=== PATIENT | female | born 1965 | race Caucasian/White ===

== ENCOUNTER → 2017-04-12 | Outpatient (CLI) | payer BC | END | disposition home or self-care (01) | LOC: C.PAPS 09:53 | PROVIDERS: ATTEND Obstetrics & Gynecology | DX: Z01.419 Encounter for gynecological examination (general) (routine) without abnormal findings (principal) ==

== ENCOUNTER 2021-06-08 04:42 | Inpatient (IN) ==
[2021-06-08] MEDS ORDERED: GI COCKTAIL ED USE PO ONE (05:05)
[2021-06-08] MEDS ORDERED: KETOROLAC TROMETHAMINE 15 MG/ML VIAL IV STA (05:05)
[2021-06-08] MEDS ORDERED: SODIUM CHLORIDE 0.9% 1000ML 1,000 ML IV ONE (05:05)
[2021-06-08] MEDS ORDERED: FAMOTIDINE 20MG IV PUSH 20 MG/5 ML SYR IV STA (05:05)
--- NOTE | 2021-06-08 05:57 | Emergency Department Note ---
History of Present Illness General Chief complaint: Flank Pain Stated complaint: SEVERE STOMACH AND BACK PAIN Time Seen by Provider: 06/08/21 04:57 History of Present Illness Maximum Pain Intensity: 8 This 55-year-old female patient presents to the emergency department today for evaluation of back pain, epigastric pain, and bloating. Symptoms have been ongoing for about 2 months. The back pain has been evaluated by her PCP and [employer] and she has had multiple pelvic ultrasounds completed which have been negative. She states initially, the back pain started with some pelvic cramping and "like I have my. But I been in menopause for years". Patient denies any vaginal bleeding or discharge. No dysuria, urinary frequency, urinary hesitancy. No fever. States over the past week or 2, the back pain has been worsening, primarily in the left lower back, but does move to the right sometimes. She states last night after eating an orange, she developed pain in her epigastrium radiating up into her chest. She states she is taking OTC Nexium without relief of her symptoms. She is scheduled to see gastroenterology in 2 days, but felt that her pain was too severe and she would like "to get some answers and relief". Patient took 1 Advil at the onset of her pain last night. There has been no vomiting. There is no diarrhea or constipation. No dysuria, urinary frequency, urinary hesitancy. She rates her pain 8/10 and describes it as burning and sharp. Home Medications Medication Instructions Recorded Confirmed Type buspirone 10 mg tablet 10 mg PO BID 05/29/19 04/07/21 History calcium carbonate [Calcium 500] PO 06/03/20 04/07/21 History cholecalciferol (vitamin D3) PO 06/03/20 04/07/21 History mometasone [Nasonex] INTRANASAL 06/03/20 04/07/21 History omega-3 fatty acids [Fish Oil PO 06/03/20 04/07/21 History Concentrate] vitamin E acetate PO 06/03/20 04/07/21 History zinc acetate PO 06/03/20 04/07/21 History estradiol 1 g VAGINAL .COMPLEX #42.5 g 04/13/21 Rx Allergies Allergy/AdvReac Type Severity Reaction Status Date / Time house dust Allergy Verified 04/07/21 14:20 mold Allergy Verified 04/07/21 14:20 No Known Drug Allergies Allergy Verified 04/07/21 14:20 Past Med/Surg History Medical History Asthma Genital warts PMB (postmenopausal bleeding) Surgical History H/O dilation and curettage History of cryosurgery History of dental surgery Family History Father Dyslipidemia Mother Uterine leiomyoma Other Depression Hypertension Social History Smoking Status: Never smoker Hx Alcohol Use: Yes Preferred Language: Ukrainian marital status: Feels Safe at Home: Yes Review of Systems A total of 10 systems reviewed and were otherwise negative Physical Exam Vital Signs Vital Signs - 24 hr 06/08/21 04:47 06/08/21 06:24 Temperature 36.5 C Temperature Source Temporal Artery Scan Pulse Rate 79 Respiratory Rate 18 Blood Pressure 195/117 H Blood Pressure Mean 143 Pulse Oximetry 98 100 Oxygen Delivery Method Room Air Room Air Sepsis New/Unexplained Change in Mental Status N/A Sepsis Action Taken by Nursing No Action Required VITALS: Vitals are noted on the nurse's note and reviewed by myself. Patient is hypertensive. GENERAL: This is a 55-year-old white female, in no acute distress, nondiaphoretic, well-developed well-nourished. SKIN: The skin was without rashes, erythema, edema, or bruising. There is no tenting of the skin. Capillary refill less than 2 seconds. HEAD: Normocephalic atraumatic. EYES: Conjunctivae without injection, sclerae without icterus. NECK: Supple without nuchal rigidity. No lymphadenopathy. No JVD. HEART: Regular rate and rhythm without murmurs gallops or rubs. LUNGS: Clear to auscultation bilaterally without wheezes, rales or rhonchi. No retractions or accessory muscle use. ABDOMEN: Positive bowel sounds x 4. Some bloating particularly in the upper abdomen. No CVA tenderness bilaterally. Abdomen otherwise generally tender. No obvious without masses or organomegaly. Joe sign negative. No guarding or rebound tenderness. MUSCULOSKELETAL: No muscle atrophy, erythema, or edema noted. Full range of motion without joint tenderness in all extremities. No tenderness to palpation. Normal gait. Strength 5/5 throughout. NEURO: Patient was alert and oriented to person place and time. No focal neurological deficits. Course Course The patient was seen and evaluated as above. An order was placed for continuous cardiac monitoring. The monitor shows a normal sinus rhythm at a rate of 79 bpm. IV access obtained, labs drawn. Labs reviewed by myself. The patient was signed out to MIGUELITO Davila pending CT imaging. Please see her dictation regarding final disposition and plan. Administered Medications Discontinued Medications Al Hydrox/Mg Hydrox/Simethicone (Gi Cocktail Ed Use) 1 dose PO ONE ONE Stop: 06/08/21 05:06 Last Admin: 06/08/21 06:11 Dose: 1 dose Documented by: [id number] Famotidine (Pepcid 20mg Iv Push) 20 mg in 5 mls @ 2.5 mls/min IV NOW STA Stop: 06/08/21 05:06 Last Admin: 06/08/21 06:12 Dose: 2.5 mls/min Documented by: [id number] Sodium Chloride (Nss 1000ml) 1,000 mls @ 999 mls/hr IV .Q1H1M ONE Stop: 06/08/21 06:05 Last Admin: 06/08/21 06:12 Dose: 999 mls/hr Documented by: [id number] Ketorolac Tromethamine (Ketorolac Tromethamine 15 Mg/Ml Vial) 15 mg IV NOW STA Stop: 06/08/21 05:06 Last Admin: 06/08/21 06:11 Dose: 15 mg Documented by: [id number] Medical Decision Making Differential Diagnosis Etiologies such as appendicitis, diverticulitis, obstruction, inflammatory bowel disease, renal colic, PUD, biliary pathology, pancreatitis, mesenteric ischemia, aortic pathology, infections, genitourinary, UTI, perforated viscus, as well as others were entertained. Medical Records Attestation: I reviewed the patient's medical records. Home Medications Current Medication List: was personally reviewed by me Laboratory Data Attestation: I reviewed the patient's lab results. No leukocytosis, anemia, thrombocytopenia. Troponin negative. Urinalysis appears contaminated. No nitrites or bacteria to clearly indicate infection. CMP pending at the time of signout. Result diagrams: 06/08/21 05:53 06/08/21 05:53 Lab Results 06/08/21 06/08/21 06/08/21 Range/Units 05:53 05:53 05:53 WBC 8.81 (4.8-10.8) K/uL RBC 4.81 (4.2-5.4) M/uL Hgb 14.8 (12.0-16.0) g/dL Hct 42.6 (37-47) % MCV 88.6 (80-100) fL MCH 30.8 (25-34) pg MCHC 34.7 (32-36) g/dL RDW Std Deviation 40.5 (36.4-46.3) fL RDW Coeff of Aguilar 12.5 (11.5-14.5) % Plt Count 223 (130-400) K/uL MPV 9.4 (7.4-10.4) fL Immature Gran % (Auto) 0.2 % Neut % (Auto) 68.7 % Lymph % (Auto) 20.4 % [place] % (Auto) 9.2 % Eos % (Auto) 1.2 % Baso % (Auto) 0.3 % Neut # (Auto) 6.04 (1.4-6.5) K/uL Lymph # (Auto) 1.80 (1.2-3.4) K/uL Leslie # (Auto) 0.81 H (0.11-0.59) K/uL Eos # (Auto) 0.11 (0-0.5) K/uL Baso # (Auto) 0.03 (0-0.2) K/uL Immature Gran # (Auto) 0.02 (0.00-0.02) K/uL Troponin I < 0.03 (0-0.04) ng/ml Urine Color Dark Yellow Urine Appearance Clear (Clear) Urine pH 7.0 (4.5-7.5) Ur Specific [place] 1.021 (1.000-1.030) Urine Protein Trace H (Negative) Urine Glucose (UA) Negative (Negative) Urine Ketones Trace H (Negative) Urine Blood 1+ H (Negative) Urine Nitrite Negative (Negative) Urine Bilirubin 1+ H (Negative) Urine Urobilinogen Negative (Negative) Ur Leukocyte Esterase Trace H (Negative) Urine WBC (Auto) 1-5 (0-5) /hpf Urine RBC (Auto) 10-30 H (0-4) /hpf U Hyaline Cast (Auto) 1-5 (0-5) /lpf U Epithel Cells (Auto) >30 H (0-5) /lpf Urine Bacteria (Auto) Negative (Negative) Blood Pressure Blood Pressure Findings: Elevated blood pressure Blood Pressure Disposition: Referred to patients primary care provider MDM Narrative This 55-year-old female patient presents to the emergency department today for evaluation of epigastric pain and bloating and low back pain. The low back pain has been ongoing for about 2 months. The epigastric pain began earlier this week and worsened overnight. The patient presented to the ED for evaluation. She is scheduled to see GI this week. The above work-up was ordered. CBC, troponin, lipase, UA unrevealing. CMP was pending at the time of shift change/signout. CT imaging is pending at the time of shift change/signout as well. Please see Yesica Stauffer dictation regarding final disposition and plan for this patient. The chart was completed utilizing [employer] Speech voice recognition software. Grammatical errors, random word insertions, pronoun errors, and incomplete sentences are an occasional consequence of this system due to software limitations, ambient noise, and hardware issues. Any formal questions or concerns about the content, text, or information contained within the body of this dictation should be directly addressed to the provider for clarification. Impression & Plan Abdominal pain, Back pain Discharge Plan Visit Data Chief Complaint: Flank Pain Stated Complaint: SEVERE STOMACH AND BACK PAIN ED Provider: Leydi Berrios ED Midlevel Provider: Yesica Stauffer Discharge Problem: Abdominal pain, Back pain Patient Disposition: Still a Patient Forms Stand Alone Forms: [employer] Prescriptions Prescriptions: No Action estradiol 0.01 % (0.1 mg/gram) cream 1 g vaginal .COMPLEX Qty: 42.5 RF: 3 calcium carbonate PO RF: 0 cholecalciferol (vitamin D3) PO RF: 0 zinc acetate PO RF: 0 vitamin E acetate PO RF: 0 omega-3 fatty acids PO RF: 0 mometasone intranasal RF: 0 buspirone 10 mg tablet 10 mg PO BID RF: 0 Referrals Referrals: Varsha Tubbs DO [Primary Care Provider] - Discharge Problem: Abdominal pain Qualifiers: Abdominal location: epigastric Qualified Code(s): R10.13 - Epigastric pain Back pain Qualifiers: Back pain location: low back pain Chronicity: chronic Back pain laterality: bilateral Sciatica presence: without sciatica Qualified Code(s): M54.50 - Low back pain, unspecified
[2021-06-08 06:07] LABS: Basophils # (auto) 0.03 K/uL (0-0.2); Basophils % (auto) 0.3 %; Eosinophils # (auto) 0.11 K/uL (0-0.5); Eosinophils % (auto) 1.2 %; Hematocrit (blood only) 42.6 % (37-47); Hemoglobin 14.8 g/dL (12.0-16.0); Immature Granulocytes # (auto) 0.02 K/uL (0.00-0.02); Immature Granulocytes % (auto) 0.2 %; Lymphocytes % (auto) 20.4 %; Mean Corpuscular Hemoglobin 30.8 pg (25-34); Mean Corpuscular Hgb Conc 34.7 g/dL (32-36); Mean Corpuscular Volume 88.6 fL (80-100); Mean Platelet Volume 9.4 fL (7.4-10.4); Monocytes # (auto) 0.81 K/uL (0.11-0.59); Monocytes % (auto) 9.2 %; Neutrophils # (auto) 6.04 K/uL (1.4-6.5); Neutrophils % (auto) 68.7 %; Platelet Count 223 K/uL (130-400); RDW Coefficient of Variation 12.5 % (11.5-14.5); RDW Standard Deviation 40.5 fL (36.4-46.3); Red Blood Count 4.81 M/uL (4.2-5.4); White Blood Count 8.81 K/uL (4.8-10.8)
[2021-06-08 06:26] LABS: Appearance Urine Clear (Clear); Bacteria Urine Automated Negative (Negative); Blood Urine 1+ (Negative); Color Urine Dark Yellow; Epithelial Cell Urine Auto >30 /lpf (0-5); Glucose Urine UA Negative (Negative); Ketones Urine Trace (Negative); Leukocyte Esterase Urine Trace (Negative); Nitrite Urine Negative (Negative); Protein Urine Trace (Negative); Specific Gravity Urine 1.021 (1.000-1.030); Urobilinogen Urine Negative (Negative)
[2021-06-08 06:32] LABS: Troponin I < 0.03 ng/ml (0-0.04)
[2021-06-08 06:33] LABS: Bilirubin Urine 1+ (Negative)
--- NOTE | 2021-06-08 07:23 | Emergency Department Note ---
Impression & Plan Abdominal pain, Back pain ED Provider Note I received sign out from Summer Lindo PA-C at change of shift. Pt presented with upper abdominal pain and lower back pain for a few months. Labs and CT pending. Patient does have a follow-up appointment with GI in 2 days. Disposition pending results. Patient's labs were notable for elevated T bili and AST/ALT. Normal lipase. She did have a normal WBC count. CT of the abdomen/pelvis noted distention of the gallbladder with thickening of the wall and possible trace pericholecystic fluid consistent with acute cholecystitis. I spoke on the phone with Dr. Pabon, general surgery, who will admit the patient, and he would like for her to have an ERCP, and he will most likely take her to surgery for cholecystectomy after this. I evaluated the patient, she was updated regarding her labs and CT findings and the plan for admission and most likely surgery. All questions were answered and the patient was agreeable to this plan. She was given additional medication with morphine and Zofran for pain and nausea. A COVID test was ordered. The patient was stable at the time of admission. The chart was completed utilizing [employer] Speech voice recognition software. Grammatical errors, random word insertions, pronoun errors, and incomplete sentences are an occasional consequence of this system due to software limitations, ambient noise, and hardware issues. Any formal questions or concerns about the content, text, or information contained within the body of this dictation should be directly addressed to the nurse practitioner for clarification. Past Med/Surg History Medical History Asthma Genital warts PMB (postmenopausal bleeding) Surgical History H/O dilation and curettage History of cryosurgery of cervix History of dental surgery Family History Father Dyslipidemia Mother Uterine leiomyoma Other Depression Hypertension Social History Smoking Status: Never smoker Hx Alcohol Use: Yes Preferred Language: Citizen Of [place] marital status: Feels Safe at Home: Yes Allergies Allergies Allergy/AdvReac Type Severity Reaction Status Date / Time house dust Allergy Verified 06/08/21 10:06 mold Allergy Verified 06/08/21 10:06 No Known Drug Allergies Allergy Verified 04/07/21 14:20 Home Meds Home Medications Medication Instructions Recorded Confirmed buspirone 10 mg tablet 10 mg PO QAM 05/29/19 06/08/21 esomeprazole magnesium 20 mg 20 mg PO QAM 06/08/21 06/08/21 capsule,delayed release Previous Rx's Medication Instructions Recorded estradiol 1 g VAGINAL .COMPLEX #42.5 g 04/13/21 Results & Data (ED) Vital Signs Vital Signs - 24 hr 06/08/21 04:47 06/08/21 06:24 06/08/21 09:59 Temperature 36.5 C Temperature Source Temporal Artery Scan Pulse Rate 79 Pulse Rate [Apical] 80 Pulse Rate [Left Finger] Pulse Rhythm [Left Finger] Pulse Strength [Left Finger] Respiratory Rate 18 18 Respiratory Effort / Characteristics Respiratory Depth Respiratory Pattern Blood Pressure 195/117 H Blood Pressure [Left Arm] 184/118 H Blood Pressure Mean 143 Blood Pressure Mean [Left Arm] 140 Blood Pressure Position [Left Arm] Pulse Oximetry 98 100 96 Oxygen Delivery Method Room Air Room Air Room Air Sepsis New/Unexplained Change in Mental Status N/A Sepsis Action Taken by Nursing No Action Required 06/08/21 10:50 06/08/21 11:09 Temperature 37 C 36.7 C Temperature Source Oral Pulse Rate 88 Pulse Rate [Apical] Pulse Rate [Left Finger] 68 Pulse Rhythm [Left Finger] Regular Pulse Strength [Left Finger] Normal Respiratory Rate 18 Respiratory Effort / Characteristics Non-Labored Spontaneous Respiratory Depth Normal Respiratory Pattern Regular Blood Pressure 154/82 H Blood Pressure [Left Arm] 169/101 H Blood Pressure Mean Blood Pressure Mean [Left Arm] 123 Blood Pressure Position [Left Arm] Semi-fowlers Pulse Oximetry 98 97 Oxygen Delivery Method Room Air Room Air Sepsis New/Unexplained Change in Mental Status Sepsis Action Taken by Nursing Laboratory Data Result diagrams: 06/08/21 05:53 06/08/21 05:53 Lab Results 06/08/21 06/08/21 06/08/21 Range/Units 05:53 05:53 05:53 WBC 8.81 (4.8-10.8) K/uL RBC 4.81 (4.2-5.4) M/uL Hgb 14.8 (12.0-16.0) g/dL Hct 42.6 (37-47) % MCV 88.6 (80-100) fL MCH 30.8 (25-34) pg MCHC 34.7 (32-36) g/dL RDW Std Deviation 40.5 (36.4-46.3) fL RDW Coeff of Aguilar 12.5 (11.5-14.5) % Plt Count 223 (130-400) K/uL MPV 9.4 (7.4-10.4) fL Immature Gran % (Auto) 0.2 % Neut % (Auto) 68.7 % Lymph % (Auto) 20.4 % [place] % (Auto) 9.2 % Eos % (Auto) 1.2 % Baso % (Auto) 0.3 % Neut # (Auto) 6.04 (1.4-6.5) K/uL Lymph # (Auto) 1.80 (1.2-3.4) K/uL [place] # (Auto) 0.81 H (0.11-0.59) K/uL Eos # (Auto) 0.11 (0-0.5) K/uL Baso # (Auto) 0.03 (0-0.2) K/uL Immature Gran # (Auto) 0.02 (0.00-0.02) K/uL Sodium 139 (136-145) mmol/L Potassium 4.0 (3.5-5.1) mmol/L Chloride 106 (98-107) mmol/L Carbon Dioxide 25 (21-32) mmol/L Anion Gap 8 (3-11) BUN 16 (6-23) mg/dl Creatinine 0.79 (0.6-1.2) mg/dl Est Cr Clr Drug Dosing 68.1 ml/min Est GFR ( Amer) 99.1 ml/min Est GFR (Non-Af Amer) 85.5 ml/min BUN/Creatinine Ratio 20.3 H (10-20) Glucose 104 H (70-99(Fasting)) mg/dl Calcium 8.7 (8.5-10.1) mg/dl Total Bilirubin 2.7 H (0.2-1.0) mg/dl AST 478 H (13-39) U/L ALT 370 H (7-52) U/L Alkaline Phosphatase 96 (34-104) U/L Troponin I < 0.03 (0-0.04) ng/ml Total Protein 7.1 (6.0-8.3) gm/dl Albumin 4.2 (3.4-5.0) gm/dl Globulin 2.9 (2.5-4.0) gm/dl Albumin/Globulin Ratio 1.4 (0.9-2) Lipase 31 (11-82) U/L Urine Color Dark Yellow Urine Appearance Clear (Clear) Urine pH 7.0 (4.5-7.5) Ur Specific [place] 1.021 (1.000-1.030) Urine Protein Trace H (Negative) Urine Glucose (UA) Negative (Negative) Urine Ketones Trace H (Negative) Urine Blood 1+ H (Negative) Urine Nitrite Negative (Negative) Urine Bilirubin 1+ H (Negative) Urine Urobilinogen Negative (Negative) Ur Leukocyte Esterase Trace H (Negative) Urine WBC (Auto) 1-5 (0-5) /hpf Urine RBC (Auto) 10-30 H (0-4) /hpf U Hyaline Cast (Auto) 1-5 (0-5) /lpf U Epithel Cells (Auto) >30 H (0-5) /lpf Urine Bacteria (Auto) Negative (Negative) POC Ur Test (NEG) SARS-CoV-2, RNA, NAAT (NEGATIVE) 06/08/21 06/08/21 Range/Units 09:50 Unknown WBC (4.8-10.8) K/uL RBC (4.2-5.4) M/uL Hgb (12.0-16.0) g/dL Hct (37-47) % MCV (80-100) fL MCH (25-34) pg MCHC (32-36) g/dL RDW Std Deviation (36.4-46.3) fL RDW Coeff of Aguilar (11.5-14.5) % Plt Count (130-400) K/uL MPV (7.4-10.4) fL Immature Gran % (Auto) % Neut % (Auto) % Lymph % (Auto) % [place] % (Auto) % Eos % (Auto) % Baso % (Auto) % Neut # (Auto) (1.4-6.5) K/uL Lymph # (Auto) (1.2-3.4) K/uL [facility] # (Auto) (0.11-0.59) K/uL Eos # (Auto) (0-0.5) K/uL Baso # (Auto) (0-0.2) K/uL Immature Gran # (Auto) (0.00-0.02) K/uL Sodium (136-145) mmol/L Potassium (3.5-5.1) mmol/L Chloride (98-107) mmol/L Carbon Dioxide (21-32) mmol/L Anion Gap (3-11) BUN (6-23) mg/dl Creatinine (0.6-1.2) mg/dl Est Cr Clr Drug Dosing ml/min Est GFR ( Amer) ml/min Est GFR (Non-Af Amer) ml/min BUN/Creatinine Ratio (10-20) Glucose (70-99(Fasting)) mg/dl Calcium (8.5-10.1) mg/dl Total Bilirubin (0.2-1.0) mg/dl AST (13-39) U/L ALT (7-52) U/L Alkaline Phosphatase (34-104) U/L Troponin I (0-0.04) ng/ml Total Protein (6.0-8.3) gm/dl Albumin (3.4-5.0) gm/dl Globulin (2.5-4.0) gm/dl Albumin/Globulin Ratio (0.9-2) Lipase (11-82) U/L Urine Color Urine Appearance (Clear) Urine pH (4.5-7.5) Ur Specific [place] (1.000-1.030) Urine Protein (Negative) Urine Glucose (UA) (Negative) Urine Ketones (Negative) Urine Blood (Negative) Urine Nitrite (Negative) Urine Bilirubin (Negative) Urine Urobilinogen (Negative) Ur Leukocyte Esterase (Negative) Urine WBC (Auto) (0-5) /hpf Urine RBC (Auto) (0-4) /hpf U Hyaline Cast (Auto) (0-5) /lpf U Epithel Cells (Auto) (0-5) /lpf Urine Bacteria (Auto) (Negative) POC Ur Test NEG (NEG) SARS-CoV-2, RNA, NAAT NEGATIVE (NEGATIVE) Administered Medications Discontinued Medications Al Hydrox/Mg Hydrox/Simethicone (Gi Cocktail Ed Use) 1 dose PO ONE ONE Stop: 06/08/21 05:06 Last Admin: 06/08/21 06:11 Dose: 1 dose Documented by: [id number] Famotidine (Pepcid 20mg Iv Push) 20 mg in 5 mls @ 2.5 mls/min IV NOW STA Stop: 06/08/21 05:06 Last Admin: 06/08/21 06:12 Dose: 2.5 mls/min Documented by: [id number] Sodium Chloride (Nss 1000ml) 1,000 mls @ 999 mls/hr IV .Q1H1M ONE Stop: 06/08/21 06:05 Last Admin: 06/08/21 06:12 Dose: 999 mls/hr Documented by: [id number] Ioversol (Optiray 320 100ml) 94 ml IV ONCE ONE Stop: 06/08/21 08:29 Last Admin: 06/08/21 08:28 Dose: 94 ml Documented by: [id number] Ketorolac Tromethamine (Ketorolac Tromethamine 15 Mg/Ml Vial) 15 mg IV NOW STA Stop: 06/08/21 05:06 Last Admin: 06/08/21 06:11 Dose: 15 mg Documented by: [id number] Morphine Sulfate (Morphine Sulfate 4 Mg/Ml 1 Ml Carp\Vial) 4 mg IV NOW STA Stop: 06/08/21 09:39 Last Admin: 06/08/21 09:53 Dose: 4 mg Documented by: [id number] Ondansetron HCl (Ondansetron Inj 2 Mg/Ml 2 Ml Vial) 4 mg IV NOW STA Stop: 06/08/21 09:39 Last Admin: 06/08/21 09:53 Dose: 4 mg Documented by: [id number] Imaging Data Radiologist's Impression: Abdomen/Pelvis CT 06/08/21 05:06 CT abd pelvis IV con only CLINICAL HISTORY: Left low back pain, epigastric pain TECHNIQUE: Helical axial images of the abdomen and pelvis were obtained and displayed. Automated dose lowering techniques and/or adjustment according to p atient size were utilized for this exam. This exam was performed with intravenous contrast. COMPARISON: None available at the time of this dictation. FINDINGS: Lower chest: Mild cardiomegaly is seen. There is atelectasis in the bilateral lung bases. Liver: Periportal edema is seen. Gallbladder and biliary tree: Gallbladder is markedly distended and the wall measures approximately 3 mm. No intra- or extrahepatic biliary ductal dilation. Pancreas: Unremarkable, no focal lesions. Spleen: Unremarkable. Adrenals: Unremarkable. Kidneys and ureters: Unremarkable. Bladder: Unremarkable. Reproductive organs: Unremarkable. Bowel: Unremarkable. Lymph nodes Retroperitoneal: Unremarkable. Mesenteric: Unremarkable. Pelvic: Unremarkable. Peritoneum: Normal. Vessels: Unremarkable. Abdominal wall: A fat-containing umbilical hernia is seen. Bones: Unremarkable. IMPRESSION: There is distention of the gallbladder with thickening of the wall with possible trace pericholecystic fluid. Findings are suggestive of acute cholecystitis in this patient with epigastric pain. If further evaluation is desired, right upper quadrant ultrasound or HIDA scan can be performed. ACT 112: Negative or not required by law. Electronically signed by: Perfecto Melgar M.D. 06/08/2021 8:52 AM Discharge Plan Visit Data Chief Complaint: Flank Pain Stated Complaint: SEVERE STOMACH AND BACK PAIN ED Provider: Leydi Berrios ED Midlevel Provider: Yesica Stauffer Discharge Problem: Abdominal pain, Back pain Patient Disposition: Still a Patient Discharge Instructions Interventions: ED Discharge Assessment Last Done: 06/08/21 10:50 Discharge Problem: Abdominal pain Qualifiers: Abdominal location: epigastric Qualified Code(s): R10.13 - Epigastric pain Back pain Qualifiers: Back pain location: low back pain Chronicity: chronic Back pain laterality: bilateral Sciatica presence: without sciatica Qualified Code(s): M54.50 - Low back pain, unspecified
[2021-06-08 07:50] LABS: Alanine Aminotransferase 370 U/L (7-52); Albumin Globulin Ratio 1.4 (0.9-2); Albumin Level 4.2 gm/dl (3.4-5.0); Alkaline Phosphatase 96 U/L (34-104); Anion Gap 8 (3-11); Aspartate Aminotransferase 478 U/L (13-39); BUN Creatinine Ratio 20.3 (10-20); Bilirubin,Total 2.7 mg/dl (0.2-1.0); Blood Urea Nitrogen 16 mg/dl (6-23); Calcium 8.7 mg/dl (8.5-10.1); Carbon Dioxide 25 mmol/L (21-32); Chloride 106 mmol/L (98-107); Creatinine Clr Calc Pharmacy 68.1 ml/min; Est GFR (African American) 99.1 ml/min; Est GFR (Non-African American) 85.5 ml/min; Globulin 2.9 gm/dl (2.5-4.0); Glucose 104 mg/dl (70-99(Fasting)); Lipase 31 U/L (11-82); Sodium 139 mmol/L (136-145); Total Protein 7.1 gm/dl (6.0-8.3)
[2021-06-08] MEDS ORDERED: OPTIRAY 320 100ml IV ONE (08:28)
--- NOTE | 2021-06-08 08:54 | CT Scan Report ---
CT abd pelvis IV con only CLINICAL HISTORY: Left low back pain, epigastric pain TECHNIQUE: Helical axial images of the abdomen and pelvis were obtained and displayed. Automated dose lowering techniques and/or adjustment according to patient size were utilized for this exam. This e xam was performed with intravenous contrast. COMPARISON: None available at the time of this dictation. FINDINGS: Lower chest: Mild cardiomegaly is seen. There is atelectasis in the bilateral lung bases. Liver: Periportal edema is seen. Gallbladder and biliary tree: Gallbladder is markedly distended and the wall measures approximately 3 mm. No intra- or extrahepatic biliary ductal dilation. Pancreas: Unremarkable, no focal lesions. Spleen: Unremarkable. Adrenals: Unremarkable. Kidneys and ureters: Unremarkable. Bladder: Unremarkable. Reproductive organs: Unremarkable. Bowel: Unremarkable. Lymph nodes Retroperitoneal: Unremarkable. Mesenteric: Unremarkable. Pelvic: Unremarkable. Peritoneum: Normal. Vessels: Unremarkable. Abdominal wall: A fat-containing umbilical hernia is seen. Bones: Unremarkable. IMPRESSION: There is distention of the gallbladder with thickening of the wall with possible trace pericholecysti c fluid. Findings are suggestive of acute cholecystitis in this patient with epigastric pain. If furt her evaluation is desired, right upper quadrant ultrasound or HIDA scan can be performed. ACT 112: Negative or not required by law. Electronically signed by: Perfecto Melgar M.D. 06/08/2021 8:52 AM
[2021-06-08] MEDS ORDERED: MoRPHine SULFATE 4 MG/ML 1 ML CARP\\VIAL IV STA (09:38)
[2021-06-08] MEDS ORDERED: ONDANSETRON INJ 2 MG/ML 2 ML VIAL IV STA ×2 (09:38→20:51)
--- NOTE | 2021-06-08 10:29 | Gastrointestinal Consultation ---
Date of Consultation June 08, 2021 Assessment & Plan (1) Abdominal pain: 55 year old female admitted w/ pain, nausea, chills imaging conerning for acute cholecystitis, GI asked to arrange pre-operative ERCP given signigiant elevated Tbili, AST/ALT NPO Plan for ERCP today pending OR schedule Antiemetics PRN Analgesia PRN Thank you for allowing us to participate in the care of this patient. Please call with any acute changes, questions or concerns. Please see addendum below with additional recommendation from my supervising physician. Supervising Physician Co-Signing Physician Notes I saw and evaluated the patient in the emergency room. She presents with several days of intermittent abdominal discomfort and subjective chills at home. She was found to have evidence of elevated liver tests and cholelithiasis on imaging. Further evaluation with possible ERCP has been requested. Physical examination Mild scleral icterus Cardiac regular rhythm Lungs clear to auscultation Abdomen right upper quadrant tender to palpation Impression: Patient presents with elevated liver enzymes and imaging notable for cholelithiasis. Based on the history I wonder about choledocholithiasis and would offer endoscopic ultrasound with possible ERCP. The risks and benefits have been discussed with the patient and her , these include bleeding, infection, perforation, pain, pancreatitis and failed biliary cannulation. History of Present Illness Reason for Consultation: pre op ERCP Requesting Physician: Cm Attending Physician: Cm History of Present Illness 55 year old female admitted w/ intermittent abd pain x 1 week with chills, worsening after dinner yesterday. Admitted w/ concerns for acute sedrick and elevated LFTs. Pt was seen and evaluated, chart reviewed. Notes feeling somewhat better since given pain medicine. Had simlar symptoms about 13 years ago but workup was negative. Has had nausea, no vomiting Chills, no fevers CTAP: There is distention of the gallbladder with thickening of the wall with possible trace pericholecystic fluid. Findings are suggestive of acute cholecystitis in this patient with epigastric pain. If further evaluation is desired, right upper quadrant ultrasound or HIDA scan can be performed. Allergies Allergy/AdvReac Type Severity Reaction Status Date / Time house dust Allergy Verified 06/08/21 10:06 mold Allergy Verified 06/08/21 10:06 No Known Drug Allergies Allergy Verified 04/07/21 14:20 Home Medications Medication Instructions Recorded Confirmed Type buspirone 10 mg tablet 10 mg PO QAM 05/29/19 06/08/21 History estradiol 1 g VAGINAL .COMPLEX #42.5 g 04/13/21 06/08/21 Rx esomeprazole magnesium 20 mg 20 mg PO QAM 06/08/21 06/08/21 History capsule,delayed release Patient History Medical History Asthma Genital warts PMB (postmenopausal bleeding) Surgical History H/O dilation and curettage History of cryosurgery History of dental surgery Family History Father Dyslipidemia Mother Uterine leiomyoma Other Depression Hypertension Social History Smoking Status: Never smoker Hx Alcohol Use: Yes Preferred Language: Estonian marital status: Feels Safe at Home: Yes Review of Systems Review of Systems: All systems reviewed & are unremarkable except as noted in HPI & below Physical Exam Constitutional: WD/WN, vitals as above Neck: trachea midline, no thyromegaly Respiratory: normal respiratory effort, lungs clear to auscultation Cardiovascular: RRR, no murmur, no edema Gastrointestinal (Abdomen): Inspection/Auscultation: abdomen normal to inspection and normal bowel sounds Percussion/Palpation: + abdomen tender and abdomen soft; no guarding and abdomen not rigid Skin: no rashes, warm and dry Results & Data ([place]) Vital Signs (Past 12 Hours) Vital Signs Temp Pulse Pulse Resp BP BP Pulse Ox 06/08/21 09:59 80 18 184/118 H 96 06/08/21 06:24 100 06/08/21 04:47 36.5 C 79 18 195/117 H 98 Laboratory Results 06/08/21 06/08/21 06/08/21 Range/Units 09:50 05:53 05:53 WBC (4.8-10.8) K/uL RBC (4.2-5.4) M/uL Hgb (12.0-16.0) g/dL Hct (37-47) % MCV (80-100) fL MCH (25-34) pg MCHC (32-36) g/dL RDW Std Deviation (36.4-46.3) fL RDW Coeff of [place] (11.5-14.5) % Plt Count (130-400) K/uL MPV (7.4-10.4) fL Immature Gran % (Auto) % Neut % (Auto) % Lymph % (Auto) % [place] % (Auto) % Eos % (Auto) % Baso % (Auto) % Neut # (Auto) (1.4-6.5) K/uL Lymph # (Auto) (1.2-3.4) K/uL [place] # (Auto) (0.11-0.59) K/uL Eos # (Auto) (0-0.5) K/uL Baso # (Auto) (0-0.2) K/uL Immature Gran # (Auto) (0.00-0.02) K/uL Sodium 139 (136-145) mmol/L Potassium 4.0 (3.5-5.1) mmol/L Chloride 106 (98-107) mmol/L Carbon Dioxide 25 (21-32) mmol/L Anion Gap 8 (3-11) BUN 16 (6-23) mg/dl Creatinine 0.79 (0.6-1.2) mg/dl Est Cr Clr Drug Dosing 68.1 ml/min Est GFR ( Amer) 99.1 ml/min Est GFR (Non-Af Amer) 85.5 ml/min BUN/Creatinine Ratio 20.3 H (10-20) Glucose 104 H (70-99(Fasting)) mg/dl Calcium 8.7 (8.5-10.1) mg/dl Total Bilirubin 2.7 H (0.2-1.0) mg/dl AST 478 H (13-39) U/L ALT 370 H (7-52) U/L Alkaline Phosphatase 96 (34-104) U/L Troponin I < 0.03 (0-0.04) ng/ml Total Protein 7.1 (6.0-8.3) gm/dl Albumin 4.2 (3.4-5.0) gm/dl Globulin 2.9 (2.5-4.0) gm/dl Albumin/Globulin Ratio 1.4 (0.9-2) Lipase 31 (11-82) U/L Urine Color Dark Yellow Urine Appearance Clear (Clear) Urine pH 7.0 (4.5-7.5) Ur Specific [place] 1.021 (1.000-1.030) Urine Protein Trace H (Negative) Urine Glucose (UA) Negative (Negative) Urine Ketones Trace H (Negative) Urine Blood 1+ H (Negative) Urine Nitrite Negative (Negative) Urine Bilirubin 1+ H (Negative) Urine Urobilinogen Negative (Negative) Ur Leukocyte Esterase Trace H (Negative) Urine WBC (Auto) 1-5 (0-5) /hpf Urine RBC (Auto) 10-30 H (0-4) /hpf U Hyaline Cast (Auto) 1-5 (0-5) /lpf U Epithel Cells (Auto) >30 H (0-5) /lpf Urine Bacteria (Auto) Negative (Negative) SARS-CoV-2, RNA, NAAT NEGATIVE (NEGATIVE) 06/08/21 Range/Units 05:53 WBC 8.81 (4.8-10.8) K/uL RBC 4.81 (4.2-5.4) M/uL Hgb 14.8 (12.0-16.0) g/dL Hct 42.6 (37-47) % MCV 88.6 (80-100) fL MCH 30.8 (25-34) pg MCHC 34.7 (32-36) g/dL RDW Std Deviation 40.5 (36.4-46.3) fL RDW Coeff of [place] 12.5 (11.5-14.5) % Plt Count 223 (130-400) K/uL MPV 9.4 (7.4-10.4) fL Immature Gran % (Auto) 0.2 % Neut % (Auto) 68.7 % Lymph % (Auto) 20.4 % [place] % (Auto) 9.2 % Eos % (Auto) 1.2 % Baso % (Auto) 0.3 % Neut # (Auto) 6.04 (1.4-6.5) K/uL Lymph # (Auto) 1.80 (1.2-3.4) K/uL [place] # (Auto) 0.81 H (0.11-0.59) K/uL Eos # (Auto) 0.11 (0-0.5) K/uL Baso # (Auto) 0.03 (0-0.2) K/uL Immature Gran # (Auto) 0.02 (0.00-0.02) K/uL Sodium (136-145) mmol/L Potassium (3.5-5.1) mmol/L Chloride (98-107) mmol/L Carbon Dioxide (21-32) mmol/L Anion Gap (3-11) BUN (6-23) mg/dl Creatinine (0.6-1.2) mg/dl Est Cr Clr Drug Dosing ml/min Est GFR ( Amer) ml/min Est GFR (Non-Af Amer) ml/min BUN/Creatinine Ratio (10-20) Glucose (70-99(Fasting)) mg/dl Calcium (8.5-10.1) mg/dl Total Bilirubin (0.2-1.0) mg/dl AST (13-39) U/L ALT (7-52) U/L Alkaline Phosphatase (34-104) U/L Troponin I (0-0.04) ng/ml Total Protein (6.0-8.3) gm/dl Albumin (3.4-5.0) gm/dl Globulin (2.5-4.0) gm/dl Albumin/Globulin Ratio (0.9-2) Lipase (11-82) U/L Urine Color Urine Appearance (Clear) Urine pH (4.5-7.5) Ur Specific [place] (1.000-1.030) Urine Protein (Negative) Urine Glucose (UA) (Negative) Urine Ketones (Negative) Urine Blood (Negative) Urine Nitrite (Negative) Urine Bilirubin (Negative) Urine Urobilinogen (Negative) Ur Leukocyte Esterase (Negative) Urine WBC (Auto) (0-5) /hpf Urine RBC (Auto) (0-4) /hpf U Hyaline Cast (Auto) (0-5) /lpf U Epithel Cells (Auto) (0-5) /lpf Urine Bacteria (Auto) (Negative) SARS-CoV-2, RNA, NAAT (NEGATIVE) (1) Abdominal pain Abdominal location: epigastric Qualified Code(s): R10.13 - Epigastric pain
[2021-06-08] MEDS ORDERED: fentaNYL citrate 100 MCG/2 ML VIAL ONE (10:48)
[2021-06-08] MEDS ORDERED: ONDANSETRON INJ 2 MG/ML 2 ML VIAL ONE (10:48)
[2021-06-08] MEDS ORDERED: LIDOCAINE 2% 2 ML VIAL/AMP(20MG/ML) INFIL ONE (10:48)
[2021-06-08] MEDS ORDERED: PROPOFOL IV EMULSION 10 MG/ML 20 ML VIAL IV ONE (10:48)
[2021-06-08] MEDS ORDERED: MIDAZOLAM HCL 1 MG/ML 2ML VIAL ONE (10:48)
[2021-06-08] MEDS ORDERED: DEXAMETHASONE SOD INJ 4 MG/ML VIAL ONE (10:48)
[2021-06-08] MEDS ORDERED: SUCCINYLCHOLINE CHLORIDE 20 MG/ML 10 ML VIAL IV ONE (10:53)
[2021-06-08] MEDS ORDERED: NALOXONE HCL 0.4 MG/1 ML VIAL/CARP IV PRN (11:18)
[2021-06-08] MEDS ORDERED: ePHEDrine sulfate 50 MG/ML AMP IV PRN (11:18)
[2021-06-08] MEDS ORDERED: ATROPINE SULFATE 0.1 MG/ML 10ML SYR IV PRN (11:18)
[2021-06-08] MEDS ORDERED: FLUMAZENIL 0.1 MG/1 ML 10 ML VIAL IV PRN (11:18)
[2021-06-08] MEDS ORDERED: ONDANSETRON INJ 2 MG/ML 2 ML VIAL IV PRN (11:18)
[2021-06-08] MEDS ORDERED: PROMETHAZINE HCL 12.5 MG in SODIUM CHLORIDE 0.9% 50 ML IV PRN ×2 (11:18→20:53)
[2021-06-08] MEDS ORDERED: LABETALOL HCL IV 5 MG/ML 20ML IV PRN (11:18)
--- NOTE | 2021-06-08 11:18 | Anesthesiology Consultation ---
Date of Service June 08, 2021 Assessment & Plan Chart Review Chart Review: Acceptable Risk for Surgery and Patient NOT seen in Pre Admission Testing Consults Requested none ASA ASA2E Proposed Anesthesia Anesthesia Type: General Risk / Benefits Reviewed With: PT / POA / Parent / Guardian, Accepts Plan and Informed Consent Obtained Additional Comments: covid test neg. History Surgery Operation Date: 06/08/21 11:10 Proposed Procedures p Endoscopic Retrograde Cholangiopancreatogram - Jody Jarrett DO Height/Weight Height: 5 ft 3 in Weight: 57.7 kg Allergies Allergy/AdvReac Type Severity Reaction Status Date / Time house dust Allergy Verified 06/08/21 10:06 mold Allergy Verified 06/08/21 10:06 No Known Drug Allergies Allergy Verified 04/07/21 14:20 Medications Home Medications Medication Instructions Recorded Confirmed Last Taken buspirone 10 mg tablet 10 mg PO QAM 05/29/19 06/08/21 06/07/21 estradiol 1 g VAGINAL .COMPLEX #42.5 g 04/13/21 06/08/21 06/07/21 esomeprazole magnesium 20 mg 20 mg PO QAM 06/08/21 06/08/21 06/07/21 capsule,delayed release NPO Date Last Intake of Fluids: 06/08/21 Time Last Intake of Fluids: 07:00 Date Last Intake of Solids: 06/07/21 Time Last Intake of Solids: 21:00 Past Medical History Medical History Asthma Genital warts PMB (postmenopausal bleeding) Exercise / Class Metabolic Activity II 4-5 Yardwork/Stairs/Walk up hill Past Family History Family History Father Dyslipidemia Mother Uterine leiomyoma Other Depression Hypertension Past Surgical History Surgical History H/O dilation and curettage History of cryosurgery of cervix History of dental surgery Past Anesthesia History No Hx of Anesthesia Complications and No Family Hx of Anesthesia Complications History of PONV No Hx of PONV and No Hx of Motion Sickness Social History Smoking Status: Never smoker Hx Alcohol Use: Yes Physical Exam Vital Signs Last Vital Signs Temp 36.7 C 06/08/21 11:09 Pulse 68 06/08/21 11:09 Resp 18 06/08/21 11:09 BP 169/101 H 06/08/21 11:09 Pulse Ox 97 06/08/21 11:09 Constitutional not cachectic ENMT Mouth: no dentition abnormality Thyromental Distance: < 3.5 Finger Breadths Mallampati Class: II Neck normal visual inspection and trachea midline; neck extension not limited Respiratory normal respiratory effort Auscultation: lungs clear to auscultation bilaterally Cardiovascular Rate/Rhythm: regular rate and regular rhythm Heart Sounds: no murmur Vessels: no carotid bruit Musculoskeletal Spine: normal cervical ROM Neurologic moves all extremities Motor/Sensory: no sensory deficit Psychiatric Orientation: alert and oriented x 3 Testing Laboratory Results 06/08/21 05:53 06/08/21 05:53 Urine Color Dark Yellow 06/08/21 05:53 Urine Appearance Clear (Clear) 06/08/21 05:53 Urine pH 7.0 (4.5-7.5) 06/08/21 05:53 Ur Specific [place] 1.021 (1.000-1.030) 06/08/21 05:53 Urine Protein Trace (Negative) H 06/08/21 05:53 Urine Glucose (UA) Negative (Negative) 06/08/21 05:53 Urine Ketones Trace (Negative) H 06/08/21 05:53 Urine Nitrite Negative (Negative) 06/08/21 05:53 Ur Leukocyte Esterase Trace (Negative) H 06/08/21 05:53 Urine WBC (Auto) 1-5 /hpf (0-5) 06/08/21 05:53 Urine RBC (Auto) 10-30 /hpf (0-4) H 06/08/21 05:53 U Hyaline Cast (Auto) 1-5 /lpf (0-5) 06/08/21 05:53 U Epithel Cells (Auto) >30 /lpf (0-5) H 06/08/21 05:53 Urine Bacteria (Auto) Negative (Negative) 06/08/21 05:53 06/08/21 Unknown POC Ur Test NEG Electrocardiogram Date: 06/08/21 Findings: + SB @ (at 59;IRBBB)
[2021-06-08] MEDS ORDERED: INDOMETHACIN 50 MG SUPP PR ONE (12:27)
--- NOTE | 2021-06-08 13:25 | GI REPORT ---
Patient Name: Salina Roldan Procedure Date: 06/08/2021 12:56 PM Date of : 1965 Admit Type: Outpatient Age: 55 Gender: Female Attending MD: Jody Jarrett DO Procedure: Upper EUS Providers: Jody Jarrett DO Referring MD: Jessica Jane Md Indications: Elevated liver enzymes, Suspected choledocholithiasis Medicines: General Anesthesia Complications: No immediate complications. Estimated blood loss: Minimal. Estimated Blood Loss: Estimated blood loss was minimal. Procedure: Pre-Anesthesia Assessment: - Prior to the procedure, a History and Physical was performed, and patient medications, allergies and sensitivities were reviewed. The patient's tolerance of previous anesthesia was reviewed. - The risks and benefits of the procedure and the sedation options and risks were discussed with the patient. All questions were answered and informed consent was obtained. - Patient identification and proposed procedure were verified prior to the procedure by the physician, the nurse and the hair cutter. The procedure was verified in the procedure room. - Pre-procedure physical examination revealed no contraindications to sedation. - ASA Grade Assessment: II - A patient with mild systemic disease. - After reviewing the risks and benefits, the patient was deemed in satisfactory condition to undergo the procedure. - Immediately prior to administration of medications, the patient was re-assessed for adequacy to receive sedatives. - The anesthesia plan was to use general anesthesia. - Immediately prior to administration of medications, the patient was re-assessed for adequacy to receive sedatives. - The heart rate, respiratory rate, oxygen saturations, blood pressure, adequacy of pulmonary ventilation, and response to care were monitored throughout the procedure. - The physical status of the patient was re-assessed after the procedure. After obtaining informed consent, the endoscope was passed under direct vision. Throughout the procedure, the patient's blood pressure, pulse, and oxygen saturations were monitored continuously. The Scope was introduced through the mouth, and advanced to the third part of duodenum. The upper EUS was accomplished without difficulty. The patient tolerated the procedure well. Findings: ENDOSCOPIC FINDING: : A medium amount of food (residue) was found in the gastric body. ENDOSONOGRAPHIC FINDING: : There was no sign of significant endosonographic abnormality in the ampulla. No pathologic lymphadenopathy and no masses were identified. There was no sign of significant endosonographic abnormality in the common bile duct. The maximum diameter of the duct was 4 mm. Moderate hyperechoic material consistent with sludge was visualized endosonographically in the common bile duct. Extensive hyperechoic material consistent with sludge was visualized endosonographically in the gallbladder. There was no sign of significant endosonographic abnormality in the entire pancreas. The pancreatic duct measured up to 2 mm in diameter. No masses, no cysts, the pancreatic duct was thin in caliber. Impression: - A medium amount of food (residue) in the stomach. - There was no sign of significant pathology in the ampulla. - There was no sign of significant pathology in the common bile duct. - Hyperechoic material consistent with sludge was visualized endosonographically in the common bile duct. - Hyperechoic material consistent with sludge was visualized endosonographically in the gallbladder. - There was no sign of significant pathology in the entire pancreas. - No specimens collected. Recommendation: - Perform an ERCP today. Jody Jarrett D.O. Jody Jarrett, 06/08/2021 1:25:29 PM This report has been signed electronically. Note Initiated On: 06/08/2021 12:56 PM Number of Addenda: 0 I attest to the content of the Intraoperative Record and orders documented therein, exceptions below {[id number]}
--- NOTE | 2021-06-08 14:09 | Surgery Consultation ---
Date of Consultation June 08, 2021 Assessment & Plan (1) Acute cholecystitis: pt is a 55 year-old female who presents to Er with acute RUQ pain, CT scan diagnosis- acute cholecystitis, elevate LFT, and T, bili IMP: acute cholecystitis, Plan, recommend consult GI for ERCP, U/S study to R/O gallstone, IV fluid, IV antibiotic,m control pain, SCD, repeat labs in morning, possible laparoscopic cholecystectomy, will F/U, pt agrees with the plan, I answered all questions, Supervising Physician Co-Signing Physician Notes I saw and evaluated the patient in the emergency room. She presents with several days of intermittent abdominal discomfort and subjective chills at home. She was found to have evidence of elevated liver tests and cholelithiasis on imaging. Further evaluation with possible ERCP has been requested. Physical examination Mild scleral icterus Cardiac regular rhythm Lungs clear to auscultation Abdomen right upper quadrant tender to palpation Impression: Patient presents with elevated liver enzymes and imaging notable for cholelithiasis. Based on the history I wonder about choledocholithiasis and would offer endoscopic ultrasound with possible ERCP. The risks and benefits have been discussed with the patient and her , these include bleeding, infection, perforation, pain, pancreatitis and failed biliary cannulation. History of Present Illness Reason for Consultation: acute cholecystitis Attending Physician: Ilda Pabon MD History of Present Illness History of Present Illness General Chief complaint: Flank Pain Stated complaint: SEVERE STOMACH AND BACK PAIN Time Seen by Provider: 06/08/21 04:57 History of Present Illness Maximum Pain Intensity: 8 This 55-year-old female patient presents to the emergency department today for evaluation of back pain, epigastric pain, and bloating. Symptoms have been ongoing for about 2 months. The back pain has been evaluated by her PCP and [employer] SAL[employer] COORDINATOR and she has had multiple pelvic ultrasounds completed which have been negative. She states initially, the back pain started with some pelvic cramping and "like I have my. But I been in menopause for years". Patient denies any vaginal bleeding or discharge. No dysuria, urinary frequency, urinary hesitancy. No fever. States over the past week or 2, the back pain has been worsening, primarily in the left lower back, but does move to the right some times. She states last night after eating an orange, she developed pain in her epigastrium radiating up into her chest. She states she is taking OTC Nexium without relief of her symptoms. She is scheduled to see gastroenterology in 2 days, but felt that her pain was too severe and she would like "to get some answers and relief". Patient took 1 Advil at the onset of her pain last night. There has been no vomiting. There is no diarrhea or constipation. No dysuria, urinary frequency, urinary hesitancy. She rates her pain 8/10 and describes it as burning and sharp. I ( Ilda Pabon MD ) got a call for consult acute cholecystitis, cholelithiasis, I reviewed pt's H/P, labs, CT scan with pt. Home Medications Medication Instructions Recorded Confirmed Type buspirone 10 mg tablet 10 mg PO BID 05/29/19 04/07/21 History calcium carbonate [Calcium 500] PO 06/03/20 04/07/21 History cholecalciferol (vitamin D3) PO 06/03/20 04/07/21 History mometasone [Nasonex] INTRANASAL 06/03/20 04/07/21 History omega-3 fatty acids [Fish Oil PO 06/03/20 04/07/21 History Concentrate] vitamin E acetate PO 06/03/20 04/07/21 History zinc acetate PO 06/03/20 04/07/21 History estradiol 1 g VAGINAL .COMPLEX #42.5 g 04/13/21 Rx Allergies Allergy/AdvReac Type Severity Reaction Status Date / Time house dust Allergy Verified 04/07/21 14:20 mold Allergy Verified 04/07/21 14:20 No Known Drug Allergies Allergy Verified 04/07/21 14:20 Past Med/Surg History Medical History Asthma Genital warts PMB (postmenopausal bleeding) Surgical History H/O dilation and curettage History of cryosurgery History of dental surgery Family History Father DyslipidemiaMother Uterine leiomyomaOther Depression Hypertension Social History Smoking Status: Never smoker Hx Alcohol Use: Yes Preferred Language: Indian marital status: Feels Safe at Home: Yes Review of Systems A total of 10 systems reviewed and were otherwise negative Allergies Allergy/AdvReac Type Severity Reaction Status Date / Time house dust Allergy Verified 06/08/21 10:06 mold Allergy Verified 06/08/21 10:06 No Known Drug Allergies Allergy Verified 04/07/21 14:20 Home Medications Medication Instructions Recorded Confirmed Type buspirone 10 mg tablet 10 mg PO QAM 05/29/19 06/08/21 History estradiol 1 g VAGINAL .COMPLEX #42.5 g 04/13/21 06/08/21 Rx esomeprazole magnesium 20 mg 20 mg PO QAM 06/08/21 06/08/21 History capsule,delayed release Patient History Medical History Asthma Genital warts PMB (postmenopausal bleeding) Surgical History H/O dilation and curettage History of cryosurgery of cervix History of dental surgery Family History Father Dyslipidemia Mother Uterine leiomyoma Other Depression Hypertension Social History Smoking Status: Never smoker Hx Alcohol Use: Yes Preferred Language: Indian marital status: Feels Safe at Home: Yes Review of Systems Constitutional: as per Subjective / HPI Eyes: as per Subjective / HPI Respiratory: as per Subjective / HPI Cardiovascular: as per Subjective / HPI Gastrointestinal: bloating symptom Musculoskeletal: neck pain Neurologic: as per Subjective / HPI Psychiatric: depression with anxiety Endocrine: as per Subjective / HPI Hematologic / Lymphatic: as per Subjective / HPI Physical Exam Constitutional: WD/WN, vitals as above Eyes: PERRL, conjunctivae normal, anicteric sclerae Neck: trachea midline, no thyromegaly Respiratory: normal respiratory effort, lungs clear to auscultation Cardiovascular: RRR, no murmur, no edema Gastrointestinal (Abdomen): mild tenderness at RUQ, no rebound pain, no distend, BS + Musculoskeletal: no cyanosis or clubbing, extremities motor strength 5/5 Neurologic: patellar DTR's 2+ bilat, sensation intact Psychiatric: A+Ox3, euthymic affect Results & Data ([facility]) Vital Signs (Past 12 Hours) Vital Signs Temp Pulse Pulse Pulse Resp BP BP 06/08/21 11:09 36.7 C 68 18 169/101 H 06/08/21 10:50 37 C 88 154/82 H 06/08/21 09:59 80 18 184/118 H 06/08/21 06:24 06/08/21 04:47 36.5 C 79 18 195/117 H Pulse Ox 06/08/21 11:09 97 06/08/21 10:50 98 06/08/21 09:59 96 06/08/21 06:24 100 06/08/21 04:47 98 Laboratory Results Abnormal lab results 06/08/21 06/08/21 06/08/21 Range/Units 05:53 05:53 05:53 [place] # (Auto) 0.81 H (0.11-0.59) K/uL BUN/Creatinine Ratio 20.3 H (10-20) Glucose 104 H (70-99(Fasting)) mg/dl Total Bilirubin 2.7 H (0.2-1.0) mg/dl AST 478 H (13-39) U/L ALT 370 H (7-52) U/L Urine Protein Trace H (Negative) Urine Ketones Trace H (Negative) Urine Blood 1+ H (Negative) Urine Bilirubin 1+ H (Negative) Ur Leukocyte Esterase Trace H (Negative) Urine RBC (Auto) 10-30 H (0-4) /hpf U Epithel Cells (Auto) >30 H (0-5) /lpf Diagnostic Findings CT abd pelvis IV con only CLINICAL HISTORY: Left low back pain, epigastric pain TECHNIQUE: Helical axial images of the abdomen and pelvis were obtained and displayed. Automated dose lowering techniques and/or adjustment according to patient size were utilized for this exam. This exam was performed with intravenous contrast. COMPARISON: None available at the time of this dictation. FINDINGS: Lower chest: Mild cardiomegaly is seen. There is atelectasis in the bilateral lung bases. Liver: Periportal edema is seen. Gallbladder and biliary tree: Gallbladder is markedly distended and the wall measures approximately 3 mm. No intra- or extrahepatic biliary ductal dilation. Pancreas: Unremarkable, no focal lesions. Spleen: Unremarkable. Adrenals: Unremarkable. Kidneys and ureters: Unremarkable. Bladder: Unremarkable. Reproductive organs: Unremarkable. Bowel: Unremarkable. Lymph nodes Retroperitoneal: Unremarkable. Mesenteric: Unremarkable. Pelvic: Unremarkable. Peritoneum: Normal. Vessels: Unremarkable. Abdominal wall: A fat-containing umbilical hernia is seen. Bones: Unremarkable. IMPRESSION: There is distention of the gallbladder with thickening of the wall with possible trace pericholecystic fluid. Findings are suggestive of acute cholecystitis in this patient with epigastric pain. If further evaluation is desired, right upper quadrant ultrasound or HIDA scan can be performed.
--- NOTE | 2021-06-08 14:23 | GI REPORT ---
Patient Name: Salina Roldan Procedure Date: 06/08/2021 1:25 PM Date of : 1965 Admit Type: Outpatient Age: 55 Gender: Female Attending MD: Jody Jarrett DO Procedure: ERCP Providers: Jody Jarrett DO Referring MD: Jessica Jane Md Indications: Abdominal pain of suspected biliary origin, Abnormal endoscopic ultrasound of the biliary system, Elevated liver enzymes Medicines: General Anesthesia Complications: No immediate complications. Estimated blood loss: Minimal. Estimated Blood Loss: Estimated blood loss was minimal. Procedure: Pre-Anesthesia Assessment: - Prior to the procedure, a History and Physical was performed, and patient medications, allergies and sensitivities were reviewed. The patient's tolerance of previous anesthesia was reviewed. - The risks and benefits of the procedure and the sedation options and risks were discussed with the patient. All questions were answered and informed consent was obtained. - Patient identification and proposed procedure were verified prior to the procedure by the physician, the nurse and the bread wrapper. The procedure was verified in the procedure room. - Pre-procedure physical examination revealed no contraindications to sedation. - ASA Grade Assessment: II - A patient with mild systemic disease. - After reviewing the risks and benefits, the patient was deemed in satisfactory condition to undergo the procedure. - The anesthesia plan was to use general anesthesia. - Immediately prior to administration of medications, the patient was re-assessed for adequacy to receive sedatives. - The heart rate, respiratory rate, oxygen saturations, blood pressure, adequacy of pulmonary ventilation, and response to care were monitored throughout the procedure. - The physical status of the patient was re-assessed after the procedure. After obtaining informed consent, the scope was passed under direct vision. Throughout the procedure, the patient's blood pressure, pulse, and oxygen saturations were monitored continuously. The Duodenoscope was introduced through the mouth, and advanced to the duodenum and used to inject contrast into the bile duct. The ERCP was accomplished without difficulty. The patient tolerated the procedure well. Findings: The operator maintainer film was normal. The esophagus was successfully intubated under direct vision without detailed examination of the pharynx, larynx, and associated structures. The upper GI tract was traversed under direct vision without detailed examination. The major papilla was edematous. The bile duct was deeply cannulated with the short-nosed traction sphincterotome and guidewire. Contrast was injected. I personally interpreted the bile duct images. Contrast extended to the entire biliary tree. The biliary orifice was stenotic. This appeared benign. The lower third of the main bile duct contained filling defect(s) thought to be a stone and sludge. The upper third of the main bile duct contained a single mild stenosis 5 mm in length. Biliary sphincterotomy was made with a monofilament Fusion OMNI sphincterotome using ERBE electrocautery. There was no post-sphincterotomy bleeding. To discover objects, the biliary tree was swept with an 11.5 mm balloon starting at the bifurcation. Sludge was swept from the duct. No stones were removed. No stones remained. Initially I was not able to pass a biliary stent beyond the stricture. Therefore, the upper third of the main bile duct was successfully dilated with a 6 mm balloon dilator. One 10 Fr by 7 cm biliary stent with a single external flap and a single internal flap was placed 7 cm into the common bile duct. Bile flowed through the stent. The stent was in good position. The endoscope was withdrawn from the patient. Indomethacin 100 mg was given via suppository to decrease the risk of post-ERCP pancreatitis (PEP). Impression: - The major papilla appeared edematous. - Biliary papillary stenosis, benign. - A filling defect consistent with a stone and sludge was seen on the cholangiogram. - A single mild biliary stricture was found in the upper third of the main bile duct. 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 - Choledocholithiasis was found. Complete removal was accomplished by biliary sphincterotomy and balloon extraction. - A biliary sphincterotomy was performed. - One biliary stent was placed into the common bile duct. - Indomethacin given to decrease risk of post-ERCP pancreatitis. Recommendation: - Avoid aspirin and nonsteroidal anti-inflammatory medicines for 1 week. - Use broad spectrum antibiotics for 10 days. - Repeat ERCP in 6 weeks to remove stent. - Cholecystectomy per general surgery Jody Jarrett D.O. Jody Jarrett DO 06/08/2021 2:22:47 PM This report has been signed electronically. Note Initiated On: 06/08/2021 1:25 PM Number of Addenda: 0 I attest to the content of the Intraoperative Record and orders documented therein, exceptions below {[id number]}
--- NOTE | 2021-06-08 14:24 | Post Operative Brief Note ---
Immediate Post Op Note v1 Date of Surgery June 08, 2021 Pre & Post Diagnosis Operation Date: 06/08/21 11:10 Pre-Op Diagnosis: Cholelithiasis I identified the patient and participated in the time-out.: Yes Procedure Operation Date: 06/08/21 11:10 Enbdoscopic ultrasound ERCP wiht biliary sphincterotomy, balloon dilation of the CBD and biliary stent placement. Surgeon Jody Jarrett DO Identification And Records Commander none Estimated Blood Loss 0 Findings Consistent with Post-Op Diagnosis
--- NOTE | 2021-06-08 14:25 | Communication Note ---
Date of Service: June 08, 2021 The patient underwent endoscopic ultrasound and ERCP today. The endoscopic ultrasound was notable for evidence of sludge within the common bile duct and the gallbladder. ERCP was performed notable for stone and sludge material within the distal common bile duct, papillary stenosis, and evidence of Mirizzi syndrome. The stricture at the junction of the cystic duct crossing the bile duct was dilated to 6 mm with a balloon dilation catheter. A biliary stent was placed to control the bile duct. Recommendations May have clear liquids from our standpoint Cholecystectomy per general surgery Avoid nonsteroidals for 1 week Broad-spectrum antibiotic coverage for total of 10 days Repeat ERCP for biliary stent removal in 6 to 8 weeks Consider daily labs to include a CBC and CMP Please call with any questions or concerns
--- NOTE | 2021-06-08 15:00 | Anesthesiology Progress Note ---
Date of Service June 08, 2021 Anesthesia Post Procedure Vital Signs Vital Signs: Temp Pulse Pulse Pulse Resp BP BP 06/08/21 14:55 36.1 C L 60 16 151/97 H 06/08/21 14:45 59 L 12 150/92 H 06/08/21 14:35 62 16 162/95 H 06/08/21 14:25 77 16 139/82 06/08/21 14:18 36.5 C 65 16 121/75 06/08/21 11:09 36.7 C 68 18 169/101 H 06/08/21 10:50 37 C 88 154/82 H 06/08/21 09:59 80 18 184/118 H 06/08/21 06:24 06/08/21 04:47 36.5 C 79 18 195/117 H Pulse Ox 06/08/21 14:55 96 06/08/21 14:45 97 06/08/21 14:35 100 06/08/21 14:25 100 06/08/21 14:18 96 06/08/21 11:09 97 06/08/21 10:50 98 06/08/21 09:59 96 06/08/21 06:24 100 06/08/21 04:47 98 Pain Intensity Abdomen: Pain Intensity: 5 Transfer of Care Handoff Completed per policy Notes Mental Status: alert / awake / arousable Patient Amnestic to Procedure: Yes Nausea / Vomiting: adequately controlled Pain: adequately controlled Airway Patency, RR, SpO2: stable & adequate BP & HR: stable & adequate Hydration State: stable & adequate Anesthetic Complications: no major complications apparent
[2021-06-08] MEDS: fentaNYL citrate 100 MCG/2 ML VIAL IV PRN ×2 (15:23→15:28)
[2021-06-08] MEDS ORDERED: hydrALAZINE HCL 20 MG/ML VIAL IV STA (15:48)
--- NOTE | 2021-06-08 15:48 | Fluoroscopy Report ---
FL ERCP biliary ductal CLINICAL HISTORY: EXPLORE DUCTS TECHNIQUE: 10 views were obtained with the C-arm in the OR with the above procedure. Total fluoroscop y time was 295.5 seconds. Total skin dose was 31.92 mGy. Comparison: None available at the time of this dictation. FINDINGS/IMPRESSION: Intraoperative images were obtained of ERCP with stent placement. Please correlate with intraoperative fluoroscopy and operative report. ACT 112: Negative or not required by law. Electronically signed by: Perfecto Melgar M.D. 06/08/2021 3:46 PM
[2021-06-08] MEDS ORDERED: hydrALAZINE HCL 20 MG/ML VIAL ONE (15:49)
[2021-06-08] MEDS ORDERED: HYDROmorphone INJ 0.5 MG/0.5 ML SYR IV PRN (16:24)
[2021-06-08] MEDS ORDERED: cefTRIAXone SODIUM 2,000 MG in DEXTROSE 5% 50 ML IV SCH (16:24)
[2021-06-08] MEDS ORDERED: PIPERACILL/TAZOBAC CONSULT ACTIVE PRN (16:26)
[2021-06-08] MEDS ORDERED: PIPERACILLIN/TAZOBACTAM 3.375 GM in DEXTROSE 5% 100 ML IV ONE (17:00)
[2021-06-08] MEDS: ONDANSETRON INJ 2 MG/ML 2 ML VIAL IV PRN (18:01)
[2021-06-08] MEDS: LACTATED RINGER'S 1,000 ML IV SCH ×2 (18:23→23:45)
[2021-06-08] MEDS: HYDROmorphone INJ 0.5 MG/0.5 ML SYR IV PRN ×2 (20:15→23:56)
--- NOTE | 2021-06-08 22:39 | Electrocardiogram Report ---
Test Reason : Blood Pressure : / mmHG Vent. Rate : 059 BPM Atrial Rate : 059 BPM P-R Int : 204 ms QRS Dur : 092 ms QT Int : 428 ms P-R-T Axes : 022 -05 016 degrees QTc Int : 423 ms Sinus bradycardia Incomplete right bundle branch block Possible Inferior infarct , age undetermined Abnormal ECG No previous ECGs available Confirmed by Wilbert Flores ([id number]) on 06/08/2021 10:39:33 PM Referred By: REFERRED SELF Confirmed By:Wilbert Flores
[2021-06-09] MEDS: PIPERACILLIN/TAZOBACTAM 3.375 GM in DEXTROSE 5% 100 ML IV SCH ×3 (01:21→17:08)
[2021-06-09] MEDS: HYDROmorphone INJ 0.5 MG/0.5 ML SYR IV PRN ×2 (03:22→06:29)
[2021-06-09 05:54] LABS: Basophils # (auto) 0.02 K/uL (0-0.2); Basophils % (auto) 0.1 %; Hematocrit (blood only) 39.8 % (37-47); Hemoglobin 13.9 g/dL (12.0-16.0); Immature Granulocytes # (auto) 0.03 K/uL (0.00-0.02); Immature Granulocytes % (auto) 0.2 %; Lymphocytes # (auto) 1.82 K/uL (1.2-3.4); Lymphocytes % (auto) 12.2 %; Mean Corpuscular Hemoglobin 31.1 pg (25-34); Mean Corpuscular Hgb Conc 34.9 g/dL (32-36); Mean Platelet Volume 9.3 fL (7.4-10.4); Monocytes # (auto) 1.04 K/uL (0.11-0.59); Neutrophils # (auto) 11.95 K/uL (1.4-6.5); Neutrophils % (auto) 80.5 %; Platelet Count 215 K/uL (130-400); RDW Coefficient of Variation 12.7 % (11.5-14.5); RDW Standard Deviation 41.1 fL (36.4-46.3); Red Blood Count 4.47 M/uL (4.2-5.4); White Blood Count 14.86 K/uL (4.8-10.8)
[2021-06-09 06:26] LABS: Albumin Globulin Ratio 1.5 (0.9-2); Albumin Level 3.5 gm/dl (3.4-5.0); BUN Creatinine Ratio 20.3 (10-20); Bilirubin,Total 2.6 mg/dl (0.2-1.0); Calcium 8.1 mg/dl (8.5-10.1); Creatinine Clr Calc Pharmacy 72.7 ml/min; Est GFR (African American) 107.2 ml/min; Est GFR (Non-African American) 92.5 ml/min; Globulin 2.4 gm/dl (2.5-4.0); Potassium 3.6 mmol/L (3.5-5.1); Total Protein 5.9 gm/dl (6.0-8.3)
[2021-06-09] MEDS: ONDANSETRON INJ 2 MG/ML 2 ML VIAL IV PRN (06:29)
--- NOTE | 2021-06-09 07:05 | Ultrasound Report ---
ULTRASOUND RIGHT UPPER QUADRANT ABDOMEN CLINICAL HISTORY: Right upper quadrant abdominal pain. Nausea and vomiting. COMPARISON STUDY: Abdominal CT dated 06/08/2021 TECHNIQUE: Real-time, grayscale, and color flow sonography of the right upper quadrant of the abdomen was performed. Images are reviewed in the transverse and longitudinal planes. FINDINGS: Liver: The liver is normal in size and echotexture. There is no intrahepatic biliary ductal dilatatio n. The main portal vein is patent. Gallbladder: Foci of adenomyomatosis are suggested. No shadowing gallstones are identified. A 4 mm ga llbladder polyp is incidentally noted. There is mild nonspecific gallbladder wall thickening which me asures up to 3 mm. No pericholecystic fluid is seen. A sonographic Joe's sign is reportedly absent . The common bile duct measures up to 0.2 cm in diameter. Pancreas: Visualized portions of the pancreatic head and body are normal in appearance. The splenic v ein is patent. Right kidney: Survey images of the right kidney demonstrate normal size and echotexture. There is no hydronephrosis. Ascites: None. IMPRESSION: 1. There is mild nonspecific gallbladder wall thickening. No shadowing gallstones are identified and there is no definitive sonographic evidence of acute cholecystitis. If there is strong clinical clare rn for acute cholecystitis a nuclear hepatobiliary scan could be obtained. 2. There is no intra or extrahepatic biliary ductal dilatation. 3. A 4 mm gallbladder polyp is incidentally noted. ACT 112: Negative or not required by law. Electronically signed by: Lg Kilpatrick M.D. 06/09/2021 7:04 AM
[2021-06-09] MEDS: LACTATED RINGER'S 1,000 ML IV SCH ×3 (07:49→22:02)
[2021-06-09] MEDS: FAMOTIDINE 20 MG in SYRINGE 3 ML IV SCH (07:52)
--- NOTE | 2021-06-09 08:41 | Gastroenterology Progress Note ---
Date of Service June 09, 2021 Assessment & Plan (1) Abdominal pain: Plan: 55 year old female admitted w/ pain, nausea, chills imaging concerning for acute cholecystitis. S/P ERCP w/ biliary papillary stenosis, filling defect consistent with a stone and sludge, mild biliary stricture associated with Mirizzi syndrome s/p sphincterotomy and balloon, biliary stent was placed into the common bile Avoid aspirin and nonsteroidal anti-inflammatory medicines for 1 week. Use broad spectrum antibiotics for 10 days. Repeat ERCP in 6 weeks to remove stent. Cholecystectomy per general surgery Antiemetics PRN Analgesia PRN Will sign off. Thank you for allowing us to participate in the care of this patient. Please call with any acute changes, questions or concerns. Please see addendum below with additional recommendation from my supervising physician. Admission and Anticipated Discharge Date Admission Date: June 08, 2021 Supervising Physician Co-Signing Physician Notes I have personally seen and examined the patient with MIGUELITO Haskins. Her note reflects my exam and findings. I agree with her impression and plan. Having some epigastric discomfort. Lipase elevated/pancreatitis. Continue aggressive hydration and follow symptoms. Stewart Neal M.D. Subjective Pt was seen and evaluated, chart reviewed. Has had persistent abdominal pain. She did have nausea/vomiting this AM. Bilious. She had a tray of liquids when I was in her room, I asked her not to remain NPO until surgery team evaluated her Review of Systems Review of Systems: All systems reviewed & are unremarkable except as noted in HPI & below Physical Exam Constitutional: WD/WN, vitals as above Neck: trachea midline, no thyromegaly Respiratory: normal respiratory effort, lungs clear to auscultation Cardiovascular: RRR, no murmur, no edema Gastrointestinal (Abdomen): Inspection/Auscultation: abdomen normal to inspection and normal bowel sounds Percussion/Palpation: + abdomen tender and abdomen soft; no guarding and abdomen not rigid Skin: no rashes, warm and dry Results & Data ([facility]) Vital Signs (Past 12 Hours) Vital Signs Temp Pulse Resp BP Pulse Ox 06/09/21 08:27 36.9 C 67 16 147/81 H 97 06/09/21 03:31 37.1 C 71 16 150/85 H 96 06/08/21 23:47 36.7 C 82 16 147/80 H 96 Laboratory Results 06/09/21 06/09/21 06/09/21 Range/Units 05:41 05:41 05:41 WBC 14.86 H (4.8-10.8) K/uL RBC 4.47 (4.2-5.4) M/uL Hgb 13.9 (12.0-16.0) g/dL Hct 39.8 (37-47) % MCV 89.0 (80-100) fL MCH 31.1 (25-34) pg MCHC 34.9 (32-36) g/dL RDW Std Deviation 41.1 (36.4-46.3) fL RDW Coeff of Aguilar 12.7 (11.5-14.5) % Plt Count 215 (130-400) K/uL MPV 9.3 (7.4-10.4) fL Immature Gran % (Auto) 0.2 % Neut % (Auto) 80.5 % Lymph % (Auto) 12.2 % Craig % (Auto) 7.0 % Eos % (Auto) 0.0 % Baso % (Auto) 0.1 % Neut # (Auto) 11.95 H (1.4-6.5) K/uL Lymph # (Auto) 1.82 (1.2-3.4) K/uL Craig # (Auto) 1.04 H (0.11-0.59) K/uL Eos # (Auto) 0.00 (0-0.5) K/uL Baso # (Auto) 0.02 (0-0.2) K/uL Immature Gran # (Auto) 0.03 H (0.00-0.02) K/uL Sodium 136 (136-145) mmol/L Potassium 3.6 (3.5-5.1) mmol/L Chloride 107 (98-107) mmol/L Carbon Dioxide 22 (21-32) mmol/L Anion Gap 7 (3-11) BUN 15 (6-23) mg/dl Creatinine 0.74 (0.6-1.2) mg/dl Est Cr Clr Drug Dosing 72.7 ml/min Est GFR ( Amer) 107.2 ml/min Est GFR (Non-Af Amer) 92.5 ml/min BUN/Creatinine Ratio 20.3 H (10-20) Glucose 104 H (70-99(Fasting)) mg/dl Calcium 8.1 L (8.5-10.1) mg/dl Total Bilirubin 2.6 H (0.2-1.0) mg/dl AST 292 H (13-39) U/L ALT 486 H (7-52) U/L Alkaline Phosphatase 106 H (34-104) U/L Total Protein 5.9 L (6.0-8.3) gm/dl Albumin 3.5 (3.4-5.0) gm/dl Globulin 2.4 L (2.5-4.0) gm/dl Albumin/Globulin Ratio 1.5 (0.9-2) Lipase Pending POC Ur Test (NEG) SARS-CoV-2, RNA, NAAT (NEGATIVE) 06/08/21 06/08/21 Range/Units Unknown 09:50 WBC (4.8-10.8) K/uL RBC (4.2-5.4) M/uL Hgb (12.0-16.0) g/dL Hct (37-47) % MCV (80-100) fL MCH (25-34) pg MCHC (32-36) g/dL RDW Std Deviation (36.4-46.3) fL RDW Coeff of Aguilar (11.5-14.5) % Plt Count (130-400) K/uL MPV (7.4-10.4) fL Immature Gran % (Auto) % Neut % (Auto) % Lymph % (Auto) % Craig % (Auto) % Eos % (Auto) % Baso % (Auto) % Neut # (Auto) (1.4-6.5) K/uL Lymph # (Auto) (1.2-3.4) K/uL Craig # (Auto) (0.11-0.59) K/uL Eos # (Auto) (0-0.5) K/uL Baso # (Auto) (0-0.2) K/uL Immature Gran # (Auto) (0.00-0.02) K/uL Sodium (136-145) mmol/L Potassium (3.5-5.1) mmol/L Chloride (98-107) mmol/L Carbon Dioxide (21-32) mmol/L Anion Gap (3-11) BUN (6-23) mg/dl Creatinine (0.6-1.2) mg/dl Est Cr Clr Drug Dosing ml/min Est GFR ( Amer) ml/min Est GFR (Non-Af Amer) ml/min BUN/Creatinine Ratio (10-20) Glucose (70-99(Fasting)) mg/dl Calcium (8.5-10.1) mg/dl Total Bilirubin (0.2-1.0) mg/dl AST (13-39) U/L ALT (7-52) U/L Alkaline Phosphatase (34-104) U/L Total Protein (6.0-8.3) gm/dl Albumin (3.4-5.0) gm/dl Globulin (2.5-4.0) gm/dl Albumin/Globulin Ratio (0.9-2) Lipase POC Ur Test NEG (NEG) SARS-CoV-2, RNA, NAAT NEGATIVE (NEGATIVE) (1) Abdominal pain Abdominal location: epigastric Qualified Code(s): R10.13 - Epigastric pain
[2021-06-09] MEDS ORDERED: ACETAMINOPHEN 325 MG TAB PO PRN (11:03)
--- NOTE | 2021-06-09 11:32 | Surgery Progress Note ---
Date of Service June 09, 2021 Assessment & Plan (1) Acute cholecystitis: (2) Abdominal pain: (3) Back pain: (4) Acute pancreatitis after endoscopic retrograde cholangiopancreatography (ERCP): Plan: POD # 1 s/p EUS and ERCP with biliary sphincterotomy and bilairy stent placement for + choledocholithiasis and findings of Mirizzi Syndrome -afebrile, vss - increase in leukocytosis to 14K today - t. bili 2.6 (2.7), Ast improved 292 (478), ALT 486 (370), Alk phos 106 (96 - lipase 4528 today (likely post ERCP pancreatitis) Plan: Revert back to npo, may have sips/chips given pancreatitis IV fluids to 150 mls/hr Continue IV Zosyn Continue pain management as needed, added oral meds Continue antiemetics Continue IV Pepcid continue SCDs repeat am labs Needs cholecystectomy this admission given biliary obstruction however would like for labs including lipase to normalize prior to cholecystectomy. Will re- evaluate daily, possibly ? Patient was seen in collaboration during rounds with Dr. Pabon who agrees with above. Admission and Anticipated Discharge Date Admission Date: June 08, 2021 Subjective abdominal pain slightly worse today, worse at night mid to right upper abdominal pain with mid back pain + nausea and two episodes of bilious vomiting no fevers Physical Exam Constitutional: WD/WN, vitals as above no acute distress and not ill appearing Neck: normal visual inspection and trachea midline Respiratory: normal respiratory effort; no respiratory distress Gastrointestinal (Abdomen): Inspection/Auscultation: abdomen normal to inspection; abdomen not distended Percussion/Palpation: + abdomen tender (RUQ and epigastrium) and abdomen soft; no guarding and abdomen not rigid Skin: no rashes, warm and dry no jaundice Psychiatric: Orientation: alert and oriented x 3 Results & Data ([facility]) Vital Signs (Past 12 Hours) Vital Signs Temp Pulse Resp BP Pulse Ox 06/09/21 08:27 36.9 C 67 16 147/81 H 97 06/09/21 03:31 37.1 C 71 16 150/85 H 96 06/08/21 23:47 36.7 C 82 16 147/80 H 96 Laboratory Results 06/09/21 06/09/21 06/09/21 Range/Units 05:41 05:41 05:41 WBC 14.86 H (4.8-10.8) K/uL RBC 4.47 (4.2-5.4) M/uL Hgb 13.9 (12.0-16.0) g/dL Hct 39.8 (37-47) % MCV 89.0 (80-100) fL MCH 31.1 (25-34) pg MCHC 34.9 (32-36) g/dL RDW Std Deviation 41.1 (36.4-46.3) fL RDW Coeff of Aguilar 12.7 (11.5-14.5) % Plt Count 215 (130-400) K/uL MPV 9.3 (7.4-10.4) fL Immature Gran % (Auto) 0.2 % Neut % (Auto) 80.5 % Lymph % (Auto) 12.2 % [place] % (Auto) 7.0 % Eos % (Auto) 0.0 % Baso % (Auto) 0.1 % Neut # (Auto) 11.95 H (1.4-6.5) K/uL Lymph # (Auto) 1.82 (1.2-3.4) K/uL [place] # (Auto) 1.04 H (0.11-0.59) K/uL Eos # (Auto) 0.00 (0-0.5) K/uL Baso # (Auto) 0.02 (0-0.2) K/uL Immature Gran # (Auto) 0.03 H (0.00-0.02) K/uL Sodium 136 (136-145) mmol/L Potassium 3.6 (3.5-5.1) mmol/L Chloride 107 (98-107) mmol/L Carbon Dioxide 22 (21-32) mmol/L Anion Gap 7 (3-11) BUN 15 (6-23) mg/dl Creatinine 0.74 (0.6-1.2) mg/dl Est Cr Clr Drug Dosing 72.7 ml/min Est GFR ( Amer) 107.2 ml/min Est GFR (Non-Af Amer) 92.5 ml/min BUN/Creatinine Ratio 20.3 H (10-20) Glucose 104 H (70-99(Fasting)) mg/dl Calcium 8.1 L (8.5-10.1) mg/dl Total Bilirubin 2.6 H (0.2-1.0) mg/dl AST 292 H (13-39) U/L ALT 486 H (7-52) U/L Alkaline Phosphatase 106 H (34-104) U/L Total Protein 5.9 L (6.0-8.3) gm/dl Albumin 3.5 (3.4-5.0) gm/dl Globulin 2.4 L (2.5-4.0) gm/dl Albumin/Globulin Ratio 1.5 (0.9-2) Lipase 4528 H (11-82) U/L (1) Abdominal pain Abdominal location: epigastric Qualified Code(s): R10.13 - Epigastric pain (2) Back pain Back pain laterality: bilateral Back pain location: low back pain Chronicity: chronic Sciatica presence: without sciatica Qualified Code(s): M54.50 - Low back pain, unspecified; G89.29 - Other chronic pain
[2021-06-09] MEDS: oxyCODONE/ACETAMINOPHEN 5mg/325mg TAB PO PRN ×2 (13:02→17:09)
[2021-06-10] MEDS: oxyCODONE/ACETAMINOPHEN 5mg/325mg TAB PO PRN ×3 (00:06→19:55)
[2021-06-10] MEDS: PIPERACILLIN/TAZOBACTAM 3.375 GM in DEXTROSE 5% 100 ML IV SCH ×3 (01:55→20:12)
[2021-06-10] MEDS: LACTATED RINGER'S 1,000 ML IV SCH ×3 (04:37→20:13)
[2021-06-10 08:21] LABS: Basophils # (auto) 0.01 K/uL (0-0.2); Basophils % (auto) 0.1 %; Eosinophils # (auto) 0.08 K/uL (0-0.5); Eosinophils % (auto) 0.6 %; Hematocrit (blood only) 35.7 % (37-47); Hemoglobin 12.3 g/dL (12.0-16.0); Immature Granulocytes # (auto) 0.03 K/uL (0.00-0.02); Immature Granulocytes % (auto) 0.2 %; Lymphocytes # (auto) 2.32 K/uL (1.2-3.4); Lymphocytes % (auto) 17.6 %; Mean Corpuscular Hemoglobin 30.8 pg (25-34); Mean Corpuscular Hgb Conc 34.5 g/dL (32-36); Mean Corpuscular Volume 89.3 fL (80-100); Mean Platelet Volume 9.5 fL (7.4-10.4); Monocytes # (auto) 1.12 K/uL (0.11-0.59); Monocytes % (auto) 8.5 %; Neutrophils # (auto) 9.64 K/uL (1.4-6.5); Platelet Count 174 K/uL (130-400); RDW Coefficient of Variation 12.8 % (11.5-14.5); RDW Standard Deviation 41.8 fL (36.4-46.3)
[2021-06-10] MEDS: FAMOTIDINE 20 MG in SYRINGE 3 ML IV SCH (08:25)
[2021-06-10 08:41] LABS: Albumin Globulin Ratio 1.5 (0.9-2); Albumin Level 3.1 gm/dl (3.4-5.0); BUN Creatinine Ratio 13.8 (10-20); Calcium 7.6 mg/dl (8.5-10.1); Creatinine Clr Calc Pharmacy 82.8 ml/min; Est GFR (African American) 117.5 ml/min; Est GFR (Non-African American) 101.4 ml/min; Globulin 2.1 gm/dl (2.5-4.0); Potassium 3.6 mmol/L (3.5-5.1); Total Protein 5.2 gm/dl (6.0-8.3)
--- NOTE | 2021-06-10 10:47 | Surgery Progress Note ---
Date of Service June 10, 2021 Assessment & Plan (1) Acute cholecystitis: Plan: pancreatitis resolved base on ERCP finding, CBD stone which was removed, endo-us study- sludge on gallbladder, plan, I recommend to do laparoscopic cholecystectomy, possible open or c holangiogram, D/w benefits, risks and alternatives of the surgery, the risks - infection, bleeding , injury CBD, or other organs, incisional hernia, CT, DVT, stroke, pt understood, she agrees with the surgery, she signed informed consent, I answered all questions, (2) Abdominal pain: (3) Back pain: (4) Acute pancreatitis after endoscopic retrograde cholangiopancreatography (ERCP): Plan: POD # 1 s/p EUS and ERCP with biliary sphincterotomy and bilairy stent placement for + choledocholithiasis and findings of Mirizzi Syndrome -afebrile, vss - increase in leukocytosis to 14K today - t. bili 2.6 (2.7), Ast improved 292 (478), ALT 486 (370), Alk phos 106 (96 - lipase 4528 today (likely post ERCP pancreatitis) Plan: Revert back to npo, may have sips/chips given pancreatitis IV fluids to 150 mls/hr Continue IV Zosyn Continue pain management as needed, added oral meds Continue antiemetics Continue IV Pepcid continue SCDs repeat am labs Needs cholecystectomy this admission given biliary obstruction however would like for labs including lipase to normalize prior to cholecystectomy. Will re- evaluate daily, possibly ? Patient was seen in collaboration during rounds with Dr. Pabon who agrees with above. Admission and Anticipated Discharge Date Admission Date: June 08, 2021 Supervising Physician Co-Signing Physician Notes I have personally seen and examined the patient with MIGUELITO Haskins. Her note reflects my exam and findings. I agree with her impression and plan. Having some epigastric discomfort. Lipase elevated/pancreatitis. Continue aggressive hydration and follow symptoms. Stewart Neal M.D. Subjective abdominal pain slightly worse today, worse at night mid to right upper abdominal pain with mid back pain + nausea and two episodes of bilious vomiting no fevers 06/10/2021 10 :44AM Dr. Pabon pt feels better, less abdominal pain, no back, no nausea, no vomiting, no fever, Review of Systems Constitutional: as per Subjective / HPI Eyes: as per Subjective / HPI Respiratory: as per Subjective / HPI Cardiovascular: as per Subjective / HPI Gastrointestinal: bloating symptom Musculoskeletal: neck pain Neurologic: as per Subjective / HPI Psychiatric: depression with anxiety Endocrine: as per Subjective / HPI Hematologic / Lymphatic: as per Subjective / HPI Physical Exam Constitutional: WD/WN, vitals as above Eyes: PERRL, conjunctivae normal, anicteric sclerae Neck: trachea midline, no thyromegaly Respiratory: normal respiratory effort, lungs clear to auscultation Cardiovascular: RRR, no murmur, no edema Chest (Breasts): normal inspection/palpation of breasts Gastrointestinal (Abdomen): soft, mild tenderness at RUQ, no rebound pain, BS +, no distend Musculoskeletal: no cyanosis or clubbing, extremities motor strength 5/5 Neurologic: patellar DTR's 2+ bilat, sensation intact Psychiatric: A+Ox3, euthymic affect Results & Data ([facility]) Vital Signs (Past 12 Hours) Vital Signs Temp Pulse Resp BP BP Pulse Ox 06/10/21 08:26 36.6 C 79 16 135/85 151/85 H 97 Laboratory Results Abnormal lab results 06/10/21 06/10/21 Range/Units 08:05 08:05 WBC 13.20 H (4.8-10.8) K/uL RBC 4.00 L (4.2-5.4) M/uL Hct 35.7 L (37-47) % Neut # (Auto) 9.64 H (1.4-6.5) K/uL [place] # (Auto) 1.12 H (0.11-0.59) K/uL Immature Gran # (Auto) 0.03 H (0.00-0.02) K/uL Chloride 109 H (98-107) mmol/L Calcium 7.6 L (8.5-10.1) mg/dl Total Bilirubin 2.0 H (0.2-1.0) mg/dl AST 89 H (13-39) U/L ALT 254 H (7-52) U/L Total Protein 5.2 L (6.0-8.3) gm/dl Albumin 3.1 L (3.4-5.0) gm/dl Globulin 2.1 L (2.5-4.0) gm/dl Lipase 204 H (11-82) U/L Diagnostic Findings ULTRASOUND RIGHT UPPER QUADRANT ABDOMEN CLINICAL HISTORY: Right upper quadrant abdominal pain. Nausea and vomiting. COMPARISON STUDY: Abdominal CT dated 06/08/2021 TECHNIQUE: Real-time, grayscale, and color flow sonography of the right upper quadrant of the abdomen was performed. Images are reviewed in the transverse and longitudinal planes. FINDINGS: Liver: The liver is normal in size and echotexture. There is no intrahepatic biliary ductal dilatation. The main portal vein is patent. Gallbladder: Foci of adenomyomatosis are suggested. No shadowing gallstones are identified. A 4 mm gallbladder polyp is incidentally noted. There is mild nonspecific gallbladder wall thickening which measures up to 3 mm. No pericholecystic fluid is seen. A sonographic Joe's sign is reportedly absent. The common bile duct measures up to 0.2 cm in diameter. Pancreas: Visualized portions of the pancreatic head and body are normal in appearance. The splenic vein is patent. Right kidney: Survey images of the right kidney demonstrate normal size and echotexture. There is no hydronephrosis. Ascites: None. IMPRESSION: 1. There is mild nonspecific gallbladder wall thickening. No shadowing gallstones are identified and there is no definitive sonographic evidence of acute cholecystitis. If there is strong clinical concern for acute cholecystitis a nuclear hepatobiliary scan could be obtained. 2. There is no intra or extrahepatic biliary ductal dilatation. 3. A 4 mm gallbladder polyp is incidentally noted. (1) Abdominal pain Abdominal location: epigastric Qualified Code(s): R10.13 - Epigastric pain (2) Back pain Back pain laterality: bilateral Back pain location: low back pain Chronicity: chronic Sciatica presence: without sciatica Qualified Code(s): M54.50 - Low back pain, unspecified; G89.29 - Other chronic pain
[2021-06-10] MEDS: HYDROmorphone INJ 0.5 MG/0.5 ML SYR IV PRN (13:33)
[2021-06-10] MEDS ORDERED: BUPIVACAINE 0.5 % 5 MG/1 ML MPF 30ML VIAL ONE (15:01)
[2021-06-10] MEDS ORDERED: ceFAZolin 2000MG 2,000 MG/15 ML SYR IV ONE (15:01)
[2021-06-10] MEDS ORDERED: LIDOCAINE 1% LOCAL 20 ML VIAL ONE (15:01)
[2021-06-10] MEDS ORDERED: BACITRACIN OINT 15 GM TUBE ONE (15:01)
--- NOTE | 2021-06-10 15:01 | History & Physical Bridge Note ---
Date of Service June 10, 2021 History & Physical Bridge Note I have examined the patient, reviewed the History & Physical and in the interval since the performance of the History & Physical I have noted the following changes of clinical significance: no changes noted Supervising Physician Co-Signing Physician Notes I have personally seen and examined the patient with MIGUELITO Haskins. Her note reflects my exam and findings. I agree with her impression and plan. Having some epigastric discomfort. Lipase elevated/pancreatitis. Continue aggressive hydration and follow symptoms. Stewart Neal M.D.
[2021-06-10] MEDS ORDERED: ONDANSETRON INJ 2 MG/ML 2 ML VIAL ONE (15:09)
[2021-06-10] MEDS ORDERED: NEOSTIGMINE METHYLSULFATE 1 MG/ML 10ML VIAL ONE (15:09)
[2021-06-10] MEDS ORDERED: MIDAZOLAM HCL 1 MG/ML 2ML VIAL ONE (15:09)
[2021-06-10] MEDS ORDERED: LIDOCAINE 2% 2 ML VIAL/AMP(20MG/ML) INFIL ONE (15:09)
[2021-06-10] MEDS ORDERED: GLYCOPYRROLATE 0.2 MG/ML VIAL ONE (15:09)
[2021-06-10] MEDS ORDERED: DEXAMETHASONE SOD INJ 4 MG/ML VIAL ONE (15:09)
[2021-06-10] MEDS ORDERED: PROPOFOL IV EMULSION 10 MG/ML 20 ML VIAL IV ONE ×2 (15:09→16:53)
[2021-06-10] MEDS ORDERED: fentaNYL citrate 100 MCG/2 ML VIAL ONE ×3 (15:09→16:54)
[2021-06-10] MEDS ORDERED: HYDROmorphone INJ 2 MG/ML SYR/VIAL IV PRN (15:18)
[2021-06-10] MEDS ORDERED: ONDANSETRON INJ 2 MG/ML 2 ML VIAL IV PRN (15:18)
[2021-06-10] MEDS ORDERED: ATROPINE SULFATE 0.1 MG/ML 10ML SYR IV PRN (15:18)
[2021-06-10] MEDS ORDERED: ePHEDrine sulfate 50 MG/ML AMP IV PRN (15:18)
--- NOTE | 2021-06-10 15:18 | Anesthesiology Consultation ---
Date of Service June 10, 2021 Assessment & Plan ASA ASA2 Proposed Anesthesia Anesthesia Type: General Risk / Benefits Reviewed With: PT / POA / Parent / Guardian, Accepts Plan and Informed Consent Obtained History Surgery Operation Date: 06/08/21 11:10 Proposed Procedures p Endoscopic Retrograde Cholangiopancreatogram - Jody Jarrett DO Operation Date: 06/10/21 16:10 Proposed Procedures p Laparoscopic Cholecystectomy - Ilda Pabon MD Height/Weight Height: 5 ft 3 in Weight: 58.5 kg Allergies Allergy/AdvReac Type Severity Reaction Status Date / Time house dust Allergy Verified 06/08/21 10:06 mold Allergy Verified 06/08/21 10:06 No Known Drug Allergies Allergy Verified 04/07/21 14:20 Medications Home Medications Medication Instructions Recorded Confirmed Last Taken buspirone 10 mg tablet 10 mg PO QAM 05/29/19 06/08/21 06/07/21 estradiol 1 g VAGINAL .COMPLEX #42.5 g 04/13/21 06/08/21 06/07/21 esomeprazole magnesium 20 mg 20 mg PO QAM 06/08/21 06/08/21 06/07/21 capsule,delayed release Active Medications Generic Name Dose Route Start Last Admin Trade Name Freq PRN Reason Stop Dose Admin Hydromorphone HCl 0.5 mg 06/08/21 16:24 06/10/21 13:33 Hydromorphone Inj 0.5 Mg/0.5 Ml Syr IV 06/22/21 16:23 0.5 mg Q3H PRN Administration Pain (6,7,8,9,10) Lactated Ringer's 1,000 mls @ 150 mls/hr 06/08/21 16:24 06/10/21 12:04 Lr IV 07/08/21 16:23 150 mls/hr .Q6H40M MORAIMA Administration Famotidine 20 mg/ Syringe 5 mls @ 2.5 mls/min 06/09/21 09:00 06/10/21 08:25 IV 07/09/21 08:59 2.5 mls/min DAILY MORAIMA Administration Piperacillin Sod/Tazobactam 115 mls @ 28.75 mls/hr 06/08/21 22:00 06/10/21 12:41 Sod 3.375 gm/ Dextrose IV 06/18/21 21:59 Infused Q8H MORAIMA Infusion Protocol Promethazine HCl 12.5 mg/ 50.5 mls @ 202 mls/hr 06/08/21 20:53 06/09/21 08:27 Sodium Chloride IV 07/08/21 20:52 Infused Q6H PRN Infusion Nausea And Vomiting Ondansetron HCl 4 mg 06/08/21 16:24 06/09/21 06:29 Ondansetron Inj 2 Mg/Ml 2 Ml Vial IV 07/08/21 16:23 4 mg Q4H PRN Administration Nausea And Vomiting Oxycodone/Acetaminophen 2 tab 06/09/21 11:03 06/10/21 05:46 Oxycodone/Acetaminophen 5mg/325mg Tab PO 06/23/21 11:02 2 tab Q4H PRN Administration Severe Pain NPO Date Last Intake of Fluids: 06/09/21 Time Last Intake of Fluids: 07:00 Date Last Intake of Solids: 06/07/21 Time Last Intake of Solids: 21:00 Past Medical History Medical History Asthma Genital warts PMB (postmenopausal bleeding) Exercise / Class Metabolic Activity II 4-5 Yardwork/Stairs/Walk up hill Past Family History Family History Father Dyslipidemia Mother Uterine leiomyoma Other Depression Hypertension Past Surgical History Surgical History H/O dilation and curettage History of cryosurgery of cervix History of dental surgery Past Anesthesia History No Hx of Anesthesia Complications and No Family Hx of Anesthesia Complications History of PONV No Hx of PONV and No Hx of Motion Sickness Social History Smoking Status: Never smoker Hx Alcohol Use: Yes Review of Systems denies fever/cough/ colds/ chest pain/ SOB/ PALMER denies PALMER Physical Exam Vital Signs Last Vital Signs Temp 37.4 C 06/10/21 15:10 Pulse 92 H 06/10/21 15:10 Resp 16 06/10/21 15:10 BP 176/106 H 06/10/21 15:10 Pulse Ox 94 06/10/21 15:10 ENMT Mouth: no TMJ abnormality and no dentition abnormality Thyromental Distance: > or= 3.5 Finger Breadths Mallampati Class: II Neck neck extension not limited Respiratory normal respiratory effort; no respiratory distress Auscultation: lungs clear to auscultation bilaterally Cardiovascular Rate/Rhythm: regular rate and regular rhythm Neurologic moves all extremities Psychiatric Orientation: alert and oriented x 3 Testing Laboratory Results 06/10/21 08:05 06/10/21 08:05 Urine Color Dark Yellow 06/08/21 05:53 Urine Appearance Clear (Clear) 06/08/21 05:53 Urine pH 7.0 (4.5-7.5) 06/08/21 05:53 Ur Specific [place] 1.021 (1.000-1.030) 06/08/21 05:53 Urine Protein Trace (Negative) H 06/08/21 05:53 Urine Glucose (UA) Negative (Negative) 06/08/21 05:53 Urine Ketones Trace (Negative) H 06/08/21 05:53 Urine Nitrite Negative (Negative) 06/08/21 05:53 Ur Leukocyte Esterase Trace (Negative) H 06/08/21 05:53 Urine WBC (Auto) 1-5 /hpf (0-5) 06/08/21 05:53 Urine RBC (Auto) 10-30 /hpf (0-4) H 06/08/21 05:53 U Hyaline Cast (Auto) 1-5 /lpf (0-5) 06/08/21 05:53 U Epithel Cells (Auto) >30 /lpf (0-5) H 06/08/21 05:53 Urine Bacteria (Auto) Negative (Negative) 06/08/21 05:53 06/08/21 Unknown POC Ur Test NEG Electrocardiogram Date: 06/08/21 Findings: + SB @ (at 59;IRBBB)
[2021-06-10] MEDS ORDERED: LACTATED RINGER'S 1,000 ML IV SCH (15:30)
[2021-06-10] MEDS ORDERED: hydrALAZINE HCL 20 MG/ML VIAL ONE (16:24)
--- NOTE | 2021-06-10 17:21 | Post Operative Brief Note ---
Immediate Post Op Note v1 Date of Surgery June 10, 2021 Pre & Post Diagnosis Operation Date: 06/08/21 11:10 Pre-Op Diagnosis: Cholelithiasis, Post-Op Diagnosis: Stent placement Operation Date: 06/10/21 16:10 Pre-Op Diagnosis: Acute cholecystitis, Post-Op Diagnosis: Acute cholecystitis I identified the patient and participated in the time-out.: Yes Procedure Operation Date: 06/08/21 11:10 Actual Procedures p Endoscopic Ultrasonography Upper - Jody Jarrett DO p Endoscopic Retrograde Cholangiopancreato - Jody Jarrett DO Operation Date: 06/10/21 16:10 Actual Procedures p Laparoscopic Cholecystectomy(Not Applicable) - Ilda Pabon MD Surgeon Ilda Pabon MD Cane Weigher MAGALIS Irwin Estimated Blood Loss 10 Findings Consistent with Post-Op Diagnosis acute cholecystitis, Fluids 1300ml Specimens gallbladder Anesthesia Type General Complications none Disposition Accompanied Patient To Recovery: Yes
[2021-06-10] MEDS: fentaNYL citrate 100 MCG/2 ML VIAL IV PRN ×2 (17:47→18:17)
--- NOTE | 2021-06-10 20:30 | Anesthesiology Progress Note ---
Date of Service June 10, 2021 Anesthesia Post Procedure Vital Signs Vital Signs: Temp Pulse Pulse Resp BP BP Pulse Ox 06/10/21 19:50 101 H 16 158/86 H 96 06/10/21 19:24 36.8 C 94 H 18 154/83 H 94 06/10/21 18:53 36.9 C 107 H 21 155/79 H 94 06/10/21 18:35 101 H 13 137/87 95 06/10/21 18:25 101 H 12 160/91 H 95 06/10/21 18:15 97 H 13 152/86 H 94 06/10/21 18:05 36.7 C 99 H 12 160/90 H 95 06/10/21 17:55 101 H 12 155/98 H 97 06/10/21 17:45 105 H 13 160/85 H 97 06/10/21 17:35 105 H 12 153/82 H 95 06/10/21 17:27 36.9 C 100 H 18 171/96 H 95 06/10/21 15:10 37.4 C 92 H 16 176/106 H 94 06/10/21 14:51 36.8 C 85 16 147/83 H 99 06/10/21 08:26 36.6 C 79 16 135/85 151/85 H 97 06/09/21 22:09 37.0 C 76 16 146/77 H 95 Pain Intensity Abdomen: Pain Intensity: 6 Left Abdomen: Pain Intensity: 3 Transfer of Care Handoff Completed per policy Notes Mental Status: alert / awake / arousable Patient Amnestic to Procedure: Yes Nausea / Vomiting: adequately controlled Pain: adequately controlled Airway Patency, RR, SpO2: stable & adequate BP & HR: stable & adequate Hydration State: stable & adequate Anesthetic Complications: no major complications apparent
[2021-06-11] MEDS: oxyCODONE/ACETAMINOPHEN 5mg/325mg TAB PO PRN ×4 (00:17→23:40)
[2021-06-11] MEDS: PIPERACILLIN/TAZOBACTAM 3.375 GM in DEXTROSE 5% 100 ML IV SCH ×3 (03:43→20:51)
--- NOTE | 2021-06-11 04:34 | Operative Report (OR) ---
DATE OF PROCEDURE: 06/10/2021. PREOPERATIVE DIAGNOSES: Acute cholecystitis, gallbladder sludge. POSTOPERATIVE DIAGNOSES: Acute cholecystitis, gallbladder sludge. OPERATION: Laparoscopic cholecystectomy. SURGEON: Ilda Pabon MD MINE DEVELOPMENT ENGINEER: Lisset Carlin PA-C ANESTHESIA: General. ESTIMATED BLOOD LOSS: About 10 mL. FINDINGS: Acute cholecystitis. COMPLICATIONS: None. INDICATIONS FOR THE PROCEDURE: This is a 55-year-old female who was admitted to the hospital for acu te abdominal pain and the patient diagnosed with acute cholecystitis with a common bile duct stone. The patient had an ERCP done to remove the stone and the patient felt better. Then recommended to do the laparoscopic cholecystectomy, possible open, possible cholangiogram. I did talk to the patient about the benefits, risks, and alternate procedures. I indicated the risks may include, but not limi gerardo to, such as bleeding, infection, injury to common bile duct, injury to other organs, incisional h ernia, bile leak, myocardial infarction, DVT, stroke, even . The patient understands. She sign ed informed consent and I answered all questions. DETAILS OF PROCEDURE: After we identified the patient and verified the procedure, we brought in the patient to the OR, put the patient in the supine position on the OR table. The patient received SCDs on bilateral legs to prevent DVT. Also, the patient received 2 grams of Ancef IV for prophylactic a ntibiotic. The patient received general anesthesia without difficulty. The abdomen was prepped and draped in routine sterile fashion. After timeout, I injected the local anesthesia by using 1% lidoca ine mixed with 0.5% Marcaine just above umbilicus. Then I made a small incision just above umbilicus , opened fascia, opened peritoneum. Under direct vision, put a Winsome trocar in, connected to CO2 to create pneumoperitoneum, flow rate at 6 liters per minute, pressure not more than 14 mmHg. Once we got a nice pneumoperitoneum, we put a camera in, looked around the abdomen. Normal finding on the li gracie; however, there was some yellow fluid around the liver. The gallbladder shows acute cholecystiti s with gallbladder wall thickening and edema, confirmed diagnosis of acute cholecystitis. Then, we p ut another two 5 mm trocars on the right upper quadrant, one 11 trocar in the epigastric area. Once all trocars in, we used the grasper to hold the base of gallbladder, put in direction to the diaphrag m, another grasper to hold the pouch of gallbladder, put the latter to explore the triangle of Calot. The cystic duct was identified and mobilized. I put two 10 mm metal clips on the proximal cystic d uct, one on the distal cystic duct. I then used a scissor for transection of cystic duct; rechecked, no bile leak. The cystic artery was identified and mobilized. I put two 10 mm metal clips on the p roximal cystic artery, one on the distal cystic artery. Then I used scissor for transection of cysti c artery; rechecked, no active bleeding. Then, we used the Bovie to take down gallbladder from liver bed, rechecked and no bile leak, no active bleeding from the liver bed. Then, we removed gallbladde r through the catch bag. Then, again we inserted Winsome trocar in, connected to CO2 to create pneumo peritoneum, again looked around the abdomen, no active bleeding, no bile leak from liver bed. Then, we removed all trocars under direct vision. No active bleeding from the trocar sites. Pneumoperiton eum was released. I closed the umbilical incision fascial layer by using 0 Vicryl [id number] x2 , closed subcutaneous layer by using 2-0 Vicryl interruptedly, closed skin by using 4-0 Vicryl contin uous running, closed the epigastric incision the fascial layer by using 0 Vicryl [id number] x2, closed subcutaneous layer by using 2-0 Vicryl interruptedly, closed skin by using 4-0 Vicryl interrup tedly, closed another two 5 mm trocar sites skin only by using 4-0 Vicryl. Then, we put the dressing on. The patient tolerated the procedure well. All instrument, needle and sponge counts were correc t x2 at the end of the case. The patient was transferred to recovery room in stable condition. The specimen was sent to pathology. After the procedure, I did talk to the patient about the OR finding and the procedure we did, the patient understands. I answered all questions. The airline pilot/first officer, Lisset, was necessary for this procedure. Her role was to hold the camera, ret raction, and exposure. Job ID: [id number]
[2021-06-11] MEDS: LACTATED RINGER'S 1,000 ML IV SCH ×2 (05:09→14:48)
[2021-06-11 06:51] LABS: Basophils # (auto) 0.01 K/uL (0-0.2); Basophils % (auto) 0.1 %; Hematocrit (blood only) 36.6 % (37-47); Hemoglobin 12.6 g/dL (12.0-16.0); Immature Granulocytes # (auto) 0.04 K/uL (0.00-0.02); Immature Granulocytes % (auto) 0.3 %; Lymphocytes # (auto) 1.52 K/uL (1.2-3.4); Lymphocytes % (auto) 10.5 %; Mean Corpuscular Hemoglobin 30.6 pg (25-34); Mean Corpuscular Hgb Conc 34.4 g/dL (32-36); Mean Corpuscular Volume 88.8 fL (80-100); Mean Platelet Volume 9.7 fL (7.4-10.4); Monocytes # (auto) 0.86 K/uL (0.11-0.59); Monocytes % (auto) 5.9 %; Neutrophils # (auto) 12.03 K/uL (1.4-6.5); Neutrophils % (auto) 83.2 %; Platelet Count 197 K/uL (130-400); RDW Coefficient of Variation 12.8 % (11.5-14.5); RDW Standard Deviation 41.1 fL (36.4-46.3); Red Blood Count 4.12 M/uL (4.2-5.4); White Blood Count 14.46 K/uL (4.8-10.8)
[2021-06-11 07:17] LABS: Albumin Globulin Ratio 1.3 (0.9-2); Albumin Level 3.2 gm/dl (3.4-5.0); BUN Creatinine Ratio 14.8 (10-20); Bilirubin,Total 1.3 mg/dl (0.2-1.0); Creatinine Clr Calc Pharmacy 88.2 ml/min; Est GFR (Non-African American) 103.5 ml/min; Globulin 2.5 gm/dl (2.5-4.0); Potassium 3.9 mmol/L (3.5-5.1); Total Protein 5.7 gm/dl (6.0-8.3)
[2021-06-11] MEDS: busPIRone 5 MG TAB PO SCH (08:36)
[2021-06-11] MEDS: FAMOTIDINE 20 MG in SYRINGE 3 ML IV SCH (08:36)
[2021-06-11] MEDS: PANTOprazole 40 MG TAB PO SCH (08:36)
--- NOTE | 2021-06-11 10:07 | Surgery Progress Note ---
Date of Service June 11, 2021 Assessment & Plan (1) Acute cholecystitis: (2) Abdominal pain: (3) Back pain: (4) Acute pancreatitis after endoscopic retrograde cholangiopancreatography (ERCP): Plan: resolved Plan: POD #1 s/p laparoscopic cholecystectomy and POD# 3 s/p EUS and ERCP with biliary sphincterotomy and biliary stent placement for + choledocholithiasis and findings of Mirizzi Syndrome - afebrile, vss - leukocytosis stable 14K today - t. bili and LFTS improving - postop pain controlled Plan: continue pain management as needed advance diet as tolerated continue IV fluids and IV Zosyn ambulate will re-evaluate around lunch time if doing well can possibly be discharged later today will need total of 10 days of antibiotics Patient was seen in collaboration during rounds with Dr. Pabon who agrees with above. Admission and Anticipated Discharge Date Admission Date: June 08, 2021 Subjective feeling better , preoperative pain is mostly resolved pain at incision sites has clear liquid tray for breakfast no nausea or vomiting ambulated hallway this am Physical Exam Constitutional: WD/WN, vitals as above no acute distress and not ill appearing Neck: normal visual inspection and trachea midline Respiratory: normal respiratory effort; no respiratory distress Gastrointestinal (Abdomen): Inspection/Auscultation: abdomen normal to inspection and + abdominal surgical incision (covered with dressings, spotting present on dressings); abdomen not distended Percussion/Palpation: + abdomen tender (RUQ and epigastrium and at incision sites) and abdomen soft; no guarding and abdomen not rigid Skin: no rashes, warm and dry no jaundice Psychiatric: A+Ox3, euthymic affect Results & Data ([facility]) Vital Signs (Past 12 Hours) Vital Signs Temp Pulse Pulse Resp BP Pulse Ox 06/11/21 07:54 36.8 C 96 H 16 145/83 H 96 06/11/21 03:46 36.9 C 80 14 149/72 H 95 06/10/21 23:57 36.7 C 97 H 19 142/83 H 97 Laboratory Results 06/11/21 06/11/21 Range/Units 06:17 06:17 WBC 14.46 H (4.8-10.8) K/uL RBC 4.12 L (4.2-5.4) M/uL Hgb 12.6 (12.0-16.0) g/dL Hct 36.6 L (37-47) % MCV 88.8 (80-100) fL MCH 30.6 (25-34) pg MCHC 34.4 (32-36) g/dL RDW Std Deviation 41.1 (36.4-46.3) fL RDW Coeff of [place] 12.8 (11.5-14.5) % Plt Count 197 (130-400) K/uL MPV 9.7 (7.4-10.4) fL Immature Gran % (Auto) 0.3 % Neut % (Auto) 83.2 % Lymph % (Auto) 10.5 % [place] % (Auto) 5.9 % Eos % (Auto) 0.0 % Baso % (Auto) 0.1 % Neut # (Auto) 12.03 H (1.4-6.5) K/uL Lymph # (Auto) 1.52 (1.2-3.4) K/uL [place] # (Auto) 0.86 H (0.11-0.59) K/uL Eos # (Auto) 0.00 (0-0.5) K/uL Baso # (Auto) 0.01 (0-0.2) K/uL Immature Gran # (Auto) 0.04 H (0.00-0.02) K/uL Sodium 137 (136-145) mmol/L Potassium 3.9 (3.5-5.1) mmol/L Chloride 106 (98-107) mmol/L Carbon Dioxide 24 (21-32) mmol/L Anion Gap 7 (3-11) BUN 9 (6-23) mg/dl Creatinine 0.61 (0.6-1.2) mg/dl Est Cr Clr Drug Dosing 88.2 ml/min Est GFR ( Amer) 120.0 ml/min Est GFR (Non-Af Amer) 103.5 ml/min BUN/Creatinine Ratio 14.8 (10-20) Glucose 97 (70-99(Fasting)) mg/dl Calcium 8.0 L (8.5-10.1) mg/dl Total Bilirubin 1.3 H (0.2-1.0) mg/dl AST 50 H (13-39) U/L ALT 176 H (7-52) U/L Alkaline Phosphatase 80 (34-104) U/L Total Protein 5.7 L (6.0-8.3) gm/dl Albumin 3.2 L (3.4-5.0) gm/dl Globulin 2.5 (2.5-4.0) gm/dl Albumin/Globulin Ratio 1.3 (0.9-2) (1) Abdominal pain Abdominal location: epigastric Qualified Code(s): R10.13 - Epigastric pain (2) Back pain Back pain laterality: bilateral Back pain location: low back pain Chronicity: chronic Sciatica presence: without sciatica Qualified Code(s): M54.50 - Low back pain, unspecified; G89.29 - Other chronic pain
[2021-06-11] MEDS ORDERED: traMADol HCL 50 MG TABLET PO PRN (13:04)
[2021-06-11] MEDS ORDERED: bisacodyL 10 MG SUPP PR PRN (13:04)
[2021-06-11] MEDS ORDERED: SODIUM CHLORIDE 0.65% NA SOLN 45 ML (OCEAN) ONE (22:13)
--- NOTE | 2021-06-11 23:28 | Surgery Progress Note ---
Date of Service June 11, 2021 Assessment & Plan (1) Acute cholecystitis: (2) Abdominal pain: Plan: BP 171/95, HR 89. T 36.7 percocet 5/325 one dose now, lopressor 12.5mg po now, will F/U (3) Back pain: (4) Acute pancreatitis after endoscopic retrograde cholangiopancreatography (ERCP): Plan: resolved Plan: POD #1 s/p laparoscopic cholecystectomy and POD# 3 s/p EUS and ERCP with biliary sphincterotomy and biliary stent placement for + choledocholithiasis and findings of Mirizzi Syndrome - afebrile, vss - leukocytosis stable 14K today - t. bili and LFTS improving - postop pain controlled Plan: continue pain management as needed advance diet as tolerated continue IV fluids and IV Zosyn ambulate will re-evaluate around lunch time if doing well can possibly be discharged later today will need total of 10 days of antibiotics Patient was seen in collaboration during rounds with Dr. Pabon who agrees with above. Admission and Anticipated Discharge Date Admission Date: June 08, 2021 Supervising Physician Co-Signing Physician Notes I have personally seen and examined the patient with MIGUELITO Haskins. Her note reflects my exam and findings. I agree with her impression and plan. Having some epigastric discomfort. Lipase elevated/pancreatitis. Continue aggressive hydration and follow symptoms. Stewart Neal M.D. Subjective feeling better , preoperative pain is mostly resolved pain at incision sites has clear liquid tray for breakfast no nausea or vomiting ambulated hallway this am 06/11/2021 11:[address] Pabon I got a call, pt feels not right, I see pt, pt just have BM now, pt feels better now, pt has no BM for last 3 days, pt denies fever, no nausea, some abdominal pain, Review of Systems Constitutional: as per Subjective / HPI Eyes: as per Subjective / HPI Respiratory: as per Subjective / HPI Cardiovascular: as per Subjective / HPI Gastrointestinal: bloating symptom Musculoskeletal: neck pain Neurologic: as per Subjective / HPI Psychiatric: depression with anxiety Endocrine: as per Subjective / HPI Hematologic / Lymphatic: as per Subjective / HPI Physical Exam Constitutional: WD/WN, vitals as above Eyes: PERRL, conjunctivae normal, anicteric sclerae Neck: trachea midline, no thyromegaly Respiratory: normal respiratory effort, lungs clear to auscultation Cardiovascular: RRR, no murmur, no edema Chest (Breasts): normal inspection/palpation of breasts Gastrointestinal (Abdomen): soft, mild tenderness at incision site, no rebound pain, no distend, BS +, all incisions intact, no redness, Musculoskeletal: no cyanosis or clubbing, extremities motor strength 5/5 Neurologic: patellar DTR's 2+ bilat, sensation intact Psychiatric: A+Ox3, euthymic affect Results & Data ([facility]) Vital Signs (Past 12 Hours) Vital Signs Temp Pulse Pulse Resp BP Pulse Ox 06/11/21 23:00 89 20 171/95 H 06/11/21 22:55 36.7 C 87 16 94 06/11/21 15:24 36.7 C 96 H 16 140/85 96 (1) Abdominal pain Abdominal location: epigastric Qualified Code(s): R10.13 - Epigastric pain (2) Back pain Back pain laterality: bilateral Back pain location: low back pain Chronicity: chronic Sciatica presence: without sciatica Qualified Code(s): M54.50 - Low back pain, unspecified; G89.29 - Other chronic pain
[2021-06-12] MEDS ORDERED: METOPROLOL TARTRATE 25 MG TAB PO STA (00:12)
[2021-06-12] MEDS: LACTATED RINGER'S 1,000 ML IV SCH (00:26)
[2021-06-12] MEDS: PIPERACILLIN/TAZOBACTAM 3.375 GM in DEXTROSE 5% 100 ML IV SCH ×2 (04:48→13:20)
[2021-06-12] MEDS: oxyCODONE/ACETAMINOPHEN 5mg/325mg TAB PO PRN ×2 (04:55→10:06)
[2021-06-12 08:39] LABS: Basophils # (auto) 0.02 K/uL (0-0.2); Basophils % (auto) 0.2 %; Eosinophils # (auto) 0.38 K/uL (0-0.5); Eosinophils % (auto) 3.2 %; Hematocrit (blood only) 34.6 % (37-47); Hemoglobin 11.8 g/dL (12.0-16.0); Immature Granulocytes # (auto) 0.02 K/uL (0.00-0.02); Immature Granulocytes % (auto) 0.2 %; Lymphocytes # (auto) 3.91 K/uL (1.2-3.4); Lymphocytes % (auto) 32.9 %; Mean Corpuscular Hemoglobin 30.6 pg (25-34); Mean Corpuscular Hgb Conc 34.1 g/dL (32-36); Mean Corpuscular Volume 89.9 fL (80-100); Mean Platelet Volume 9.5 fL (7.4-10.4); Monocytes # (auto) 0.94 K/uL (0.11-0.59); Monocytes % (auto) 7.9 %; Neutrophils # (auto) 6.62 K/uL (1.4-6.5); Neutrophils % (auto) 55.6 %; Platelet Count 186 K/uL (130-400); RDW Coefficient of Variation 13.1 % (11.5-14.5); RDW Standard Deviation 43.2 fL (36.4-46.3); Red Blood Count 3.85 M/uL (4.2-5.4); White Blood Count 11.89 K/uL (4.8-10.8)
[2021-06-12] MEDS: PANTOprazole 40 MG TAB PO SCH (08:50)
[2021-06-12] MEDS: busPIRone 5 MG TAB PO SCH (08:50)
[2021-06-12] MEDS: FAMOTIDINE 20 MG in SYRINGE 3 ML IV SCH (08:57)
[2021-06-12] MEDS ORDERED: METOPROLOL TARTRATE 25 MG TAB PO SCH (09:00)
[2021-06-12 09:01] LABS: Albumin Globulin Ratio 1.2 (0.9-2); Albumin Level 3.2 gm/dl (3.4-5.0); BUN Creatinine Ratio 11.7 (10-20); Bilirubin,Total 1.2 mg/dl (0.2-1.0); Creatinine Clr Calc Pharmacy 89.7 ml/min; Est GFR (African American) 120.6 ml/min; Est GFR (Non-African American) 104.1 ml/min; Globulin 2.6 gm/dl (2.5-4.0); Potassium 3.4 mmol/L (3.5-5.1); Total Protein 5.8 gm/dl (6.0-8.3)
[2021-06-12] MEDS ORDERED: DOCUSATE SODIUM 100 MG CAP PO ONE (10:36)
--- NOTE | 2021-06-12 14:40 | Discharge Summary ---
Date of Service June 12, 2021 Admission HPI Per Admitting Provider This 55-year-old female patient presents to the emergency department today for evaluation of back pain, epigastric pain, and bloating. Symptoms have been ongoing for about 2 months. The back pain has been evaluated by her PCP and [employer] and she has had multiple pelvic ultrasounds completed which have been negative. She states initially, the back pain started with some pelvic cramping and "like I have my. But I been in menopause for years". Patient denies any vaginal bleeding or discharge. No dysuria, urinary frequency, urinary hesitancy. No fever. States over the past week or 2, the back pain has been worsening, primarily in the left lower back, but does move to the right sometimes. She states last night after eating an orange, she developed pain in her epigastrium radiating up into her chest. She states she is taking OTC Nexium without relief of her symptoms. She is scheduled to see gastroenterology in 2 days, but felt that her pain was too severe and she would like "to get some answers and relief". Patient took 1 Advil at the onset of her pain last night. There has been no vomiting. There is no diarrhea or constipation. No dysuria, urinary frequency, urinary hesitancy. She rates her pain 8/10 and describes it as burning and sharp. I ( Ilda Pabon MD ) got a call for consult acute cholecystitis, cholelithiasis, I reviewed pt's H/P, labs, CT scan with pt. Principal Diagnosis Acute calculous cholecystitis with choledocholithiasis Discharge Exam Constitutional WD/WN, vitals as above not ill appearing Neck normal visual inspection and trachea midline Respiratory normal respiratory effort; no respiratory distress Gastrointestinal (Abdomen) Inspection/Auscultation: abdomen normal to inspection, + abdominal surgical incision (covered with dressings) and + hypoactive bowel sounds; abdomen not distended Percussion/Palpation: + abdomen tender (mild at incision sites) and abdomen soft; no guarding, abdomen not rigid and abdomen not firm Skin no rashes, warm and dry Psychiatric A+Ox3, euthymic affect Discharge Data Allergies Allergy/AdvReac Type Severity Reaction Status Date / Time house dust Allergy Verified 06/08/21 10:06 mold Allergy Verified 06/08/21 10:06 No Known Drug Allergies Allergy Verified 04/07/21 14:20 Consultations 06/08/21 10:05 ED Decision to Admit Stat 06/08/21 16:24 Consult Gastroenterology Routine Procedures Performed Operation Date: 06/08/21 11:10 Actual Procedures p Endoscopic Ultrasonography Upper - Jody Jarrett DO p Endoscopic Retrograde Cholangiopancreato - Jody Jarrett DO Operation Date: 06/10/21 16:10 Actual Procedures p Laparoscopic Cholecystectomy(Not Applicable) - Ilda Pabon MD Ordered Studies 06/08/21 [place] ERCP biliary ductal Routine 06/08/21 05:06 CT abd pelvis IV con only Urgent 06/08/21 12:27 US upper EUS PACS images Routine 06/08/21 16:24 US gallbladder Routine Hospital Course (1) Acute cholecystitis: (2) Abdominal pain: (3) Back pain: (4) Acute pancreatitis after endoscopic retrograde cholangiopancreatography (ERCP): Patient was admitted to medical/surgical floor from emergency department and was evaluated by gastroenterology team. She underwent EUS with ERCP by Dr. Jody Jarrett on 06/08/21 and found to have stricture and choledocholithiasis. Biliary stent was placed. POD # 1 she was having increased pain in the epigastrium with nausea and two episodes of vomiting and found to have elevated lipase most likely consistent with post ERCP pancreatitis. Diet was reverted back to NPO and IV fluids were increased to 150 mls/hr given the pancreatitis. Labs were repeated on HD # 2 and showed improvement of her t. bili, lfts, and lipase. She was then taken to operating room for laparoscopic cholecystectomy on 06/10/21. She tolerated procedure well without difficulty and transferred back to medica/surgical floor. Diet advanced to clear liquids, pain management as needed, and IV fluids and IV antibiotics were continued. POD # 1 lap sedrick, afebrile, vitals stable, however developed nausea, bloating, and distention with clear liquids. Likely ileus from the pancreatitis, narcotics, and abdominal surgery. She was advised to continue sips, ambulate, and try Dulcolax suppository as she was not passing any gas. Her blood pressure became elevated in the evening and was given Lopressor PO . Likely secondary to uncontrolled pain as she avoided taking the narcotics given the ileus. POD # 2/HD # 4 afebrile, vitals stable, hypertension improved, pain controlled, nausea and bloating resolved, able to pass gas and have liquid/soft bowel movement. Labs showed improvement of leukocytosis to 11K and t.bili and lfts normalizing. She was discharged home on POD # 2 from [facility] day [facility] 4 in stable condition. Total Time Total Time Spent Total Time Spent (In Minutes): 1 hour Total Time Includes: Examination of the Patient, Discharge Planning, Medication Reconciliation and Communication With Other Providers Discharge Plan Discharge Items Patient Disposition: Home - Self-Care Reason For Visit: SEVERE STOMACH AND BACK PAIN Discharge Diagnosis: Acute calculous Cholecystitis (Acute inflammation of gallbladder with stones) Choledocholithiasis (Gallstone in common bile duct) Activity: Per Instructions section Non-emergency contact: Primary Care Provider and Surgeon Call non-emergency contact if: you have any medication questions, your pain is not controlled, your pain is worsening, your pain is concerning for you, you have a fever, your temperature is above 101, your wound has increased redness, your wound has increased drainage and your wound pain has increased Follow-up/Referrals: Jody Jarrett DO [Physician] - Varsha Tubbs DO [Primary Care Provider] - Ilda Pabon MD [Physician] - Diet: Regular Addtl Attending Provider Instructions: Post-Surgical ~Discharge Instructions Activity Recommendations: - lifting limitation: (20 pounds for 4 weeks), - exercise/sex/sports limit: (nonstrenuous for 2 weeks), - driving or machine use limit: (none for 1 week or until pain free and no longer taking narcotic pain medication), - Shower/bathe limit: (may shower beginning Tuesday) Diet: - Resume previous diet SPECIAL CARE INSTRUCTIONS: - May shower on Tuesday. Sponge bath and wash hair in meantime. On Tuesday, remove outer dressings and let water run over area and pat dry. - Leave steri strips on for one week and then remove. They may fall off on their own that is okay. - Call the surgeon's office with any questions or concerns - - (ex. temperature higher than 101 degrees F, excessive bleeding or pain). MEDICATIONS: - Resume previous medications unless instructed otherwise by your surgeon. - May take extra strength Tylenol as needed for mild to moderate pain - Avoid NSAIDs (Ibuprofen, Motrin, Aleve) for 4 more days - Take entire course of antibiotics as prescribed - Percocet 1 every 4 hours, as needed for moderate to severe pain. - Recommend daily stool softener (Colace) while taking narcotic pain medication to prevent constipation or straining. FOLLOW UP VISIT: - If not already scheduled, please call the office to schedule a two week follow-up appointment. Office number You will need to follow-up with gastroenterology for removal of the common bile duct stent in 6 weeks. Pending Studies at Discharge: Yes (gallbladder pathology, will be reviewed at follow-up visit) Stand-Alone Forms: [facility] [employer], Work/School Release, Smoking Cessa tion Medications and DC Order Prescriptions: New amoxicillin-pot clavulanate 875-125 mg tablet 1 tab PO BID Qty: 12 RF: 0 oxycodone-acetaminophen [Percocet] 5-325 mg tablet 1 tab PO Q4H PRN (Reason: pain) Qty: 18 RF: 0 Continued estradiol 0.01 % (0.1 mg/gram) cream 1 g vaginal .COMPLEX Qty: 42.5 RF: 3 buspirone 10 mg tablet 10 mg PO QAM RF: 0 esomeprazole magnesium 20 mg Capsule,Delayed Release(Dr/Ec) 20 mg PO QAM RF: 0 Discharge Orders: Discharge Order (Routine); Ordered 06/12/21 Ordered By: Lisset Carlin Admission Data Admit Date/Time: 06/08/21 13:44 Attending Provider: Ilda Pabon Admit Provider: Ilda Pabon Primary Care Provider: Varsha Tubbs Other Providers: Ilda Pabon ; Jody Jarrett Other Interventions: Discharge Summary Assessment (RN) Last Done: 06/12/21 12:37
== END 2021-06-12 13:38 | disposition home or self-care (01) | DRG 417 ==
LOC: ED 04:42 → OR 10:44 → PACUINP 13:44 → 3N 16:21